=== PATIENT | male | born 1940 | race Caucasian/White ===

== ENCOUNTER 2016-08-14 21:53 | Inpatient (IN) ==
[2016-08-14 23:15] LABS: Basophils # 0.1 K/mcL (0.0-0.2); Basophils % 0.5 %; Eosinophils # 0.2 K/mcL (0.0-0.6); Eosinophils % 1.8 %; Hematocrit 41.3 % (37.5-50.1); Hemoglobin 13.1 g/dL (12.9-16.9); Immature Granulocytes % 0.2 % (0-4); Lymphocytes # 0.4 K/mcL (0.6-4.6); Lymphocytes % 3.9 %; Mean Corpuscular HGB Conc 31.7 g/dL (31.6-35.5); Mean Corpuscular Hemoglobin 28.8 pg (28.0-33.3); Mean Corpuscular Volume 90.8 fL (83.0-100.0); Mean Platelet Volume 9.8 fL (9.4-12.4); Monocytes # 0.5 K/mcL (0.0-1.3); Neutrophils # 9.3 K/mcL (1.6-8.9); Platelet Count 231 K/mcL (140-400); Red Blood Count 4.55 M/mcL (4.19-5.50); Red Cell Distribution Width 13.3 % (11.5-14.5); Segmented Neutrophils % 88.6 %
[2016-08-14 23:25] LABS: Calcium 9.2 mg/dL (8.6-10.8); Potassium 4.6 mEq/L (3.5-4.5)
[2016-08-14] MEDS ORDERED: 0.9 % Sodium Chloride 2,000 ML IVC ONE (23:33)
[2016-08-14] MEDS ORDERED: Ipratropium/Albuterol Neb 3 ML IH ONE (23:34)
--- NOTE | 2016-08-14 23:35 | Emergency Department Note ---
Disposition Clinical Impression: Acute respiratory distress, Lactic acidosis, SIRS (systemic inflammatory response syndrome), Hypoxia, Hypomagnesemia, Acute exacerbation of chronic obstructive airways disease Disposition: Admitted As Inpatient Condition: Good Time of Disposition: 02:34 SOB HPI - General Chief Complaint: ED Shortness of Breath/Dyspnea Stated Complaint: DELGADO Time Seen by Provider: 08/14/16 23:18 Source: patient Mode of arrival: ambulatory Limitations: no limitations Nursing Notes Reviewed: Yes Vital Signs Reviewed: Yes - History of Present Illness 76-year-old male history of COPD 2 L home oxygenation and prostate cancer presents to the ED with difficulty breathing and generalized weakness. Reports over the last 2 days he has been having increased difficulty in breathing, increase cough, increased sputum production. Reports using his albuterol and duonebs at home. He denies any fevers at home or muscle aches. Influenza vaccination this year. Has some associated chest tightness. Denies any history of cardiac ischemic disease. Denies any history of cancer, recent travel, injury , or blood clots. His is at bedside and states he is been gradually more weak, this has been ongoing over the past several months. He normally is sitting on a couch and does not get out much. Tonight he had difficulty getting himself up. History of Prostate Cancer. Pt Subjective Complaint: shortness of breath, cough Onset (ago): day(s) - Related Data Allergies Allergy/AdvReac Type Severity Reaction Status Date / Time No Known Allergies Allergy Verified 08/14/16 22:18 All systems ED: reviewed and negative except as stated. Constitutional: Denies: fever, chills Cardiovascular: Reports: chest pain. Denies: palpitations Respiratory: Reports: cough, dyspnea, wheezes Gastrointestinal: Denies: abdominal pain, nausea, vomiting Musculoskeletal: Denies: back pain Integumentary: Denies: rash Past Medical History - Past Medical History Attestation: Yes The following information was validated with the patient. Source: patient Medical history: Reports: arthritis, cancer, COPD, other Psychiatric history: Reports: anxiety, depression - Social History Smoking Status: Former smoker Smokeless Tobacco Status: No Alcohol use: Reports: none Drug use: Reports: none Physical Exam - General Limitations: no limitations General appearance: alert, in no apparent distress - Head Head exam: atraumatic, normocephalic, normal inspection - Eye Eye exam: Present: normal appearance, PERRL, EOMI - ENT ENT exam: normal exam, normal oropharynx, mucous membranes dry - Neck Neck exam: Present: normal inspection, full ROM, trachea midline - Chest Chest inspection: Present: normal inspection, symmetric chest wall rise - Respiratory Respiratory exam: Present: normal lung sounds bilaterally, respiratory distress , wheezes - Expanded Respiratory Exam Location: wheezes: Left, rales: Left - Cardiovascular Cardiovascular exam: Present: regular rate, normal rhythm, normal heart sounds - Abdominal Exam Abdominal exam: Present: soft, Non-Tender, normal bowel sounds. Absent: tenderness, distention, guarding, rebound, rigidity - Extremities Exam Extremities exam: Present: normal inspection, full ROM, normal capillary refill. Absent: tenderness, pedal edema, calf tenderness - Neurological Exam Neurological exam: Present: alert, oriented X3 - Psychiatric Psychiatric exam: Present: normal affect, normal mood - Skin Skin exam: Present: warm, dry, intact, normal color Course Course Narrative: 76-year-old male with a history of COPD presents the ED for difficulty breathing. This is been ongoing for the past 2 days. Patient has a fever of 102.5 and is tachycardic at 98. SIRS criteria met. Sepsis workup initiated. 2 L ordered for resuscitation. Patient is moving air well and has bilateral wheezing that is worse on the left. Concerning for possible pneumonia as the source. Will check for influenza as well. Patient and family are in agreement with plan. - Reevaluation(s) Reevaluation #1: Chest x-ray did not reveal any acute infiltrate. Influenza is negative. His lactate is elevated 1.6 after one liter. Troponin is negative and Cr is near baseline with mild renal insufficiency. Awaiting urine. Mag and Phos are low and will replete. Will likely admit for generalized weakness, SIRS, resp distress, COPD exac. Time: 01:00 Reevaluation #2: After 2 L lactic acid has risen 2.3. He continues to have increased work of breathing. Will place him on BiPAP. Lungs remain clear bilaterally with mild wheezes but hypoxic 93%. Steroids given. Will treat with broad antibiotics Ceftriaxone and Azithromycin. Blood cultures drawn. Hospitalist paged. Time: 02:30 - Consultations Consultation #1: Spoke with Dr. Hendrix, hospitalist, discussed bed unavailability, may need to consider transfer. Requests ABG and call back. Time: 02:35 Consultation #2: ABG 7.41/38/24. Recalled rigo Cervantes to admit for SIRS, lactic acidosis , resp distress, and generalized weakness. Time: 03:30 Vital Signs Temperature 102.5 F H 08/14/16 22:18 Pulse Rate 98 08/14/16 22:18 Respiratory Rate 20 08/14/16 22:18 Blood Pressure 103/67 08/14/16 22:18 O2 Sat by Pulse Oximetry 96 08/14/16 22:18 Temperature 98.9 F 08/15/16 06:32 Pulse Rate 80 08/15/16 06:32 Respiratory Rate 20 08/15/16 06:32 Blood Pressure 154/96 08/15/16 06:32 O2 Sat by Pulse Oximetry 98 08/15/16 06:32 Oxygen Delivery Oxygen Delivery Nasal Cannula Shortness of Breath/Dyspnea - Medical Records Medical records reviewed: Yes I reviewed the patient's medical records. - Lab Data Lab results reviewed: Yes I reviewed the patient's lab results. Result diagrams: 08/14/16 23:05 08/14/16 23:05 Lab Results 08/14/16 08/14/16 08/15/16 Range/Units 23:05 23:05 00:04 WBC 10.5 (4.3-11.1) K/mcL RBC 4.55 (4.19-5.50) M/mcL Hgb 13.1 (12.9-16.9) g/dL Hct 41.3 (37.5-50.1) % MCV 90.8 (83.0-100.0) fL MCH 28.8 (28.0-33.3) pg MCHC 31.7 (31.6-35.5) g/dL RDW 13.3 (11.5-14.5) % Plt Count 231 (140-400) K/mcL MPV 9.8 (9.4-12.4) fL Immature Gran % 0.2 (0-4) % Seg Neutrophils % 88.6 % Lymphocytes % 3.9 % Monocytes % 5.0 % Eosinophils % 1.8 % Basophils % 0.5 % Neutrophils # 9.3 H (1.6-8.9) K/mcL Lymphocytes # 0.4 L (0.6-4.6) K/mcL Monocytes # 0.5 (0.0-1.3) K/mcL Eosinophils # 0.2 (0.0-0.6) K/mcL Basophils # 0.1 (0.0-0.2) K/mcL ABG pH (7.32-7.45) pH Units ABG pCO2 (35-45) mmHg ABG pO2 (85-104) mmHg ABG HCO3 (21-27) mEQ/L ABG Total CO2 (20-26) mEq/L ABG O2 Saturation (95-98) % ABG Base Excess (-2.0 to 3.0) mEq/L Respiration Rate Blood Gas Modality Inspired O2 % PEEP cm H2O Sodium 139 (136-145) mEq/L Potassium 4.6 H (3.5-4.5) mEq/L Chloride 105 (98-109) mEq/L Carbon Dioxide 25 (19-29) mEq/L BUN 26 (8-26) mg/dL Creatinine 1.43 H (0.72-1.25) mg/dL Est GFR ( Amer) 58 L (> 60) Est GFR (Non-Af Amer) 48 L (> 60) BUN/Creatinine Ratio 18 (6-26) Glucose 123 H (70-99) mg/dL Calculated Osmolality 294 (280-300) Lactic Acid 1.6 (0.5-2.2) mmol/L Calcium 9.2 (8.6-10.8) mg/dL Phosphorus (2.3-4.7) mg/dL Magnesium (1.6-2.6) mg/dL Troponin I (0-0.03) ng/mL Urine Color (Yellow) Urine Clarity (Clear) Urine pH (5.0-8.0) pH Units Ur Specific [place] (1.010-1.025) Urine Protein (Neg-Trace) mg/dL Urine Glucose (UA) (Normal) mg/dL Urine Ketones (Negative) mg/dL Urine Blood (Negative) Urine Nitrite (Negative) Urine Bilirubin (Negative) Urine Urobilinogen (Normal) mg/dL Ur Leukocyte Esterase (Negative) Urine Microscopic RBC (0-3) per hpf Urine Microscopic WBC (0-3) per hpf Ur Squamous Epith Cells (None-Few) per lpf Urine Bacteria (None-Few) per hpf Hyaline Casts (None-Few) per lpf Ur Culture Indicated? (NO) 08/15/16 08/15/16 08/15/16 Range/Units 00:04 00:04 01:30 WBC (4.3-11.1) K/mcL RBC (4.19-5.50) M/mcL Hgb (12.9-16.9) g/dL Hct (37.5-50.1) % MCV (83.0-100.0) fL MCH (28.0-33.3) pg MCHC (31.6-35.5) g/dL RDW (11.5-14.5) % Plt Count (140-400) K/mcL MPV (9.4-12.4) fL Immature Gran % (0-4) % Seg Neutrophils % % Lymphocytes % % Monocytes % % Eosinophils % % Basophils % % Neutrophils # (1.6-8.9) K/mcL Lymphocytes # (0.6-4.6) K/mcL Monocytes # (0.0-1.3) K/mcL Eosinophils # (0.0-0.6) K/mcL Basophils # (0.0-0.2) K/mcL ABG pH (7.32-7.45) pH Units ABG pCO2 (35-45) mmHg ABG pO2 (85-104) mmHg ABG HCO3 (21-27) mEQ/L ABG Total CO2 (20-26) mEq/L ABG O2 Saturation (95-98) % ABG Base Excess (-2.0 to 3.0) mEq/L Respiration Rate Blood Gas Modality Inspired O2 % PEEP cm H2O Sodium (136-145) mEq/L Potassium (3.5-4.5) mEq/L Chloride (98-109) mEq/L Carbon Dioxide (19-29) mEq/L BUN (8-26) mg/dL Creatinine (0.72-1.25) mg/dL Est GFR ( Amer) (> 60) Est GFR (Non-Af Amer) (> 60) BUN/Creatinine Ratio (6-26) Glucose (70-99) mg/dL Calculated Osmolality (280-300) Lactic Acid 2.3 H (0.5-2.2) mmol/L Calcium (8.6-10.8) mg/dL Phosphorus 1.7 L (2.3-4.7) mg/dL Magnesium 1.5 L (1.6-2.6) mg/dL Troponin I 0.01 (0-0.03) ng/mL Urine Color (Yellow) Urine Clarity (Clear) Urine pH (5.0-8.0) pH Units Ur Specific [place] (1.010-1.025) Urine Protein (Neg-Trace) mg/dL Urine Glucose (UA) (Normal) mg/dL Urine Ketones (Negative) mg/dL Urine Blood (Negative) Urine Nitrite (Negative) Urine Bilirubin (Negative) Urine Urobilinogen (Normal) mg/dL Ur Leukocyte Esterase (Negative) Urine Microscopic RBC (0-3) per hpf Urine Microscopic WBC (0-3) per hpf Ur Squamous Epith Cells (None-Few) per lpf Urine Bacteria (None-Few) per hpf Hyaline Casts (None-Few) per lpf Ur Culture Indicated? (NO) 08/15/16 08/15/16 Range/Units 01:35 03:00 WBC (4.3-11.1) K/mcL RBC (4.19-5.50) M/mcL Hgb (12.9-16.9) g/dL Hct (37.5-50.1) % MCV (83.0-100.0) fL MCH (28.0-33.3) pg MCHC (31.6-35.5) g/dL RDW (11.5-14.5) % Plt Count (140-400) K/mcL MPV (9.4-12.4) fL Immature Gran % (0-4) % Seg Neutrophils % % Lymphocytes % % Monocytes % % Eosinophils % % Basophils % % Neutrophils # (1.6-8.9) K/mcL Lymphocytes # (0.6-4.6) K/mcL Monocytes # (0.0-1.3) K/mcL Eosinophils # (0.0-0.6) K/mcL Basophils # (0.0-0.2) K/mcL ABG pH 7.41 (7.32-7.45) pH Units ABG pCO2 38 (35-45) mmHg ABG pO2 83 L (85-104) mmHg ABG HCO3 24.1 (21-27) mEQ/L ABG Total CO2 25.3 (20-26) mEq/L ABG O2 Saturation 96 (95-98) % ABG Base Excess -0.4 (-2.0 to 3.0) mEq/L Respiration Rate 12 Blood Gas Modality bipap Inspired O2 35 % PEEP 6 cm H2O Sodium (136-145) mEq/L Potassium (3.5-4.5) mEq/L Chloride (98-109) mEq/L Carbon Dioxide (19-29) mEq/L BUN (8-26) mg/dL Creatinine (0.72-1.25) mg/dL Est GFR ( Amer) (> 60) Est GFR (Non-Af Amer) (> 60) BUN/Creatinine Ratio (6-26) Glucose (70-99) mg/dL Calculated Osmolality (280-300) Lactic Acid (0.5-2.2) mmol/L Calcium (8.6-10.8) mg/dL Phosphorus (2.3-4.7) mg/dL Magnesium (1.6-2.6) mg/dL Troponin I (0-0.03) ng/mL Urine Color Yellow (Yellow) Urine Clarity Clear (Clear) Urine pH 6.0 (5.0-8.0) pH Units Ur Specific [place] 1.022 (1.010-1.025) Urine Protein Trace (Neg-Trace) mg/dL Urine Glucose (UA) Normal (Normal) mg/dL Urine Ketones Trace H (Negative) mg/dL Urine Blood Negative (Negative) Urine Nitrite Negative (Negative) Urine Bilirubin Small H (Negative) Urine Urobilinogen Normal (Normal) mg/dL Ur Leukocyte Esterase Negative (Negative) Urine Microscopic RBC 3-5 H (0-3) per hpf Urine Microscopic WBC 0-3 (0-3) per hpf Ur Squamous Epith Cells Many H (None-Few) per lpf Urine Bacteria None Seen (None-Few) per hpf Hyaline Casts None Seen (None-Few) per lpf Ur Culture Indicated? NO (NO) - Radiology Data Radiology results reviewed: Yes I reviewed the patient's radiology results. Chest X-Ray 08/14/16 22:43 IMPRESSION: No acute abnormality. D/ / Yogesh Emmanuel MD / Yogesh Emmanuel MD Interpreting Provider: Yogesh Emmanuel MD - EKG Data EKG attestation: Yes I reviewed and interpreted this EKG. EKG results narrative: EKG performed 2300 sinus tachycardia 100 beats per minute or no ST elevations or depressions, T-wave flattening, intervals are within normal limits FL interval 137 QRS 100 QT QTC 299 356. No acute ischemic changes. Attestation Statement - Attestation Attestation: For this encounter, I have reviewed the resident, UNINDENTURED APPRENTICE, or PA documentation, treatment plan, and medical decision making; and I have had face to face time with this patient. 76-year-old male presents with increasing shortness of breath over the past 2-3 days. Patient states he has a history of COPD and this feels similar to his previous COPD exacerbations. Patient reports a fever and a cough that is productive of yellow-green sputum. Patient denies nausea, vomiting, chest pain , abdominal pain, diarrhea. Patient improved mildly with initial nebulized medications. Patient then required BiPAP for continuation of care. Patient improved significantly after steroids, Tylenol, BiPAP. Patient started on antibiotics after return of elevated lactic acid despite chest x-ray that did not show significant infiltrate. Patient comfortable with the plan for admission to the hospital for continuation of care.
[2016-08-15 00:29] LABS: Magnesium 1.5 mg/dL (1.6-2.6); Phosphorous 1.7 mg/dL (2.3-4.7)
[2016-08-15] MEDS ORDERED: Acetaminophen 325 MG TABLET PO ONE (01:25)
[2016-08-15] MEDS ORDERED: predniSONE 20 MG TABLET PO ONE (01:25)
[2016-08-15] MEDS ORDERED: Azithromycin 500 MG in D5% in Water 250 ML IVPB ONE (01:32)
[2016-08-15 01:41] LABS: Bilirubin,Urine Small (Negative); Blood,Urine Negative (Negative); Clarity,Urine Clear (Clear); Color,Urine Yellow (Yellow); Glucose,Urine (UA) Normal (Normal); Ketones,Urine Trace mg/dL (Negative); Leukocyte Esterase,Urine Negative (Negative); Nitrite,Urine Negative (Negative); Protein,Urine Trace mg/dL (Neg-Trace); Specific Gravity,Urine 1.022 (1.010-1.025); Urobilinogen,Urine Normal (Normal)
[2016-08-15 01:43] LABS: Bacteria,Urine None Seen per hpf (None-Few); Hyaline Casts,Urine None Seen per lpf (None-Few); Squamous Epithelial Cell,Urine Many per lpf (None-Few); WBC,Urine 0-3 per hpf (0-3)
[2016-08-15 03:11] LABS: ABG Base Excess -0.4 mEq/L (-2.0 to 3.0); ABG HCO3 24.1 mEQ/L (21-27); ABG Oxygen Saturation 96 % (95-98); ABG PCO2 38 mmHg (35-45); ABG PH 7.41 pH Units (7.32-7.45); ABG PO2 83 mmHg (85-104); ABG TCO2 25.3 mEq/L (20-26)
[2016-08-15 03:12] LABS: Blood Gas FiO2 35 %; Blood Gas PEEP 6 cm H2O; Blood Gas Respiration Rate 12
[2016-08-15] MEDS ORDERED: Magnesium Sulfate 2 GM in D5% in Water 100 ML IVPB ONE (03:28)
[2016-08-15] MEDS ORDERED: Sodium Phosphate 30 MMOL in D5% in Water 100 ML IVPB ONE (03:28)
--- NOTE | 2016-08-15 04:31 | Internal Med History&Physical ---
<Rocky Zaragoza - Last Filed: 08/15/16 05:01> Date of Encounter: 08/15/16 Time of Encounter: 04:27 Assessment and Plan (1) Sepsis Current visit: Yes Status: Acute Likely etiology is pulmonary given presentation, but no obvious consolidation on CXR Will obtain respiratory infection panel; initial influenza nasal swab was negative Patient received one dose of Zithromax and Rocephin, will start on Levaquin monotherapy He has blood and sputum cultures ordered, await sensitivities prior to de- escalation Maintenance fluid hydration with 80 ml/hr NS Qualifiers: Qualified Code(s): A41.9 - Sepsis, unspecified organism (2) Acute and chronic respiratory failure Current visit: Yes Status: Acute Patient normally on 2 L at home and was on BiPAP earlier and currently on 3 L at home He may need to qualify for higher oxygen demands and possible night-time BiPAP Initial ABG was unremarkable but did show hypoxemia Will support with supplemental oxygen, steroids, and breathing treatments Qualifiers: Qualified Code(s): J96.20 - Acute and chronic respiratory failure, unspecified whether with hypoxia or hypercapnia (3) Acute exacerbation of chronic obstructive airways disease Current visit: Yes Status: Acute Plan as above with supplemental oxygen, steroids, breathing treatments, and antibiotics (4) DVT prophylaxis Current visit: Yes Status: Acute Heparin 5000 units BID Internal Medicine - H&P: HPI Chief complaint: Shortness of breath Admitted From: Home Plans for Post Hospital Care: Home History of present illness: Mr. Gregg is a 76 year old male who presents emergency department with shortness of breath. He states that over the past day has been progressively getting worse and he has increased cough with sputum production. He denies any blood in his sputum and described it as brown. He also describes a subjective fever which he did not not take any medications for. He notes that he has been getting weaker over the past several months and requires the assistance of his in order to get around. He has a history of COPD and is on 2 L oxygen and breathing treatments at home. He normally has a poor appetite and only eats 1 meal per day. He denies any recent hospitalizations, history of cancers, clots , or bleeding. He denies any chest pain, nausea, vomiting, diarrhea, but does endorse pain with cough. Patient was on the BiPAP earlier while in the emergency department but could not tolerate it due to irritation. Past Med Surg Social Fam HX - Past Medical History Medical history: arthritis, cancer, COPD, other Psychiatric history: anxiety, depression - Social History Smoking Status: Former smoker Smokeless Tobacco Status: No Alcohol use: none Drug use: none Internal Medicine - H&P: Meds Allergies No Known Allergies Allergy (Verified 08/14/16 22:18) All Systems PM: A 10-system review of systems was performed and is negative for pertinent findings except as documented above in the HPI. - Constitutional Constitutional: fever(s), lethargy, weakness, no chills, no night sweats - EENT Eyes: no change in vision, no discharge, no pain, no photophobia Ears: no ear discharge, no ear pain, no tinnitus Nose, mouth and throat: no dysphagia, no nasal discharge, no neck pain, no sore throat - Cardiovascular Cardiovascular ROS IM: dyspnea, dyspnea on exertion, no chest pain, no diaphoresis, no lightheadedness, no palpitations, no syncope - Respiratory Respiratory: cough, dyspnea, dyspnea on exertion, wheezing, excessive phlegm production, change in phlegm color, pain with cough - Gastrointestinal Gastrointestinal: no abdominal pain, no diarrhea, no hematemesis, no hematochezia, no melena, no nausea, no vomiting - Musculoskeletal Musculoskeletal ROS IM: no numbness, no tingling - Integumentary Integumentary IM: no rash, no unusual bruising - Neurological Neurological ROS: no confusion, no convulsions, no focal weakness, no numbness, no tingling, no tremor(s) - Hematologic/Lymphatic Hematologic/Lymphatic: no easy bruising - Constitutional Vitals: Temp Pulse Resp BP Pulse Ox 99.0 F 95 20 150/80 98 08/15/16 03:00 08/15/16 04:00 08/15/16 04:00 08/15/16 04:00 08/15/16 04:00 General appearance: Present: cooperative, A&O X 3, pleasant, no acute distress, answers questions appropriately - Head Head exam: Present: atraumatic, normocephalic - Eye Eye exam: Present: PERRL, conjuntiva pink, sclera anicteric - Neck Neck exam general surgery: Present: supple, trachea midline. Absent: lymphadenopathy - Respiratory Respiratory exam: Present: wheezes. Absent: accessory muscle use, rales, rhonchi - Cardiovascular Cardiovascular exam: Present: RRR, +S1, +S2. Absent: diastolic murmur, gallop, rubs, systolic murmur - GI/Abdominal GI/Abdominal exam: Present: normal bowel sounds, soft, no peritoneal signs. Absent: distended, tenderness - Extremities Exam Extremities exam: Present: warm, radial pulses palpable and symetrical. Absent : calf tenderness, cyanotic, pedal edema - Neurological Exam Neurological exam: Present: alert, oriented X3, no focal deficits. Absent: facial droop, speech deficit - Skin Skin exam: Present: dry, intact Internal Med - H&P Results - Labs CBC & Chem 7: 08/14/16 23:05 08/14/16 23:05 Labs: Short CBC 08/14/16 Range/Units 23:05 WBC 10.5 (4.3-11.1) K/mcL Hgb 13.1 (12.9-16.9) g/dL Hct 41.3 (37.5-50.1) % Plt Count 231 (140-400) K/mcL Neutrophils # 9.3 H (1.6-8.9) K/mcL BMP 08/14/16 23:05 Sodium 139 Potassium 4.6 H Chloride 105 Carbon Dioxide 25 BUN 26 Creatinine 1.43 H Glucose 123 H Calcium 9.2 Cardiac Enzymes 08/15/16 Range/Units 00:04 Troponin I 0.01 (0-0.03) ng/mL Urine 08/15/16 Range/Units 01:35 Urine Color Yellow (Yellow) Urine Clarity Clear (Clear) Urine pH 6.0 (5.0-8.0) pH Units Ur Specific [place] 1.022 (1.010-1.025) Urine Protein Trace (Neg-Trace) mg/dL Urine Glucose (UA) Normal (Normal) mg/dL - ABG Interpretation ABG results: 08/15/16 03:00 ABG pH 7.41 ABG pCO2 38 ABG pO2 83 L ABG HCO3 24.1 ABG Total CO2 25.3 ABG O2 Saturation 96 ABG Base Excess -0.4 - Impressions ITS Impressions Chest X-Ray 08/14/16 22:43 IMPRESSION: No acute abnormality. D/ / Yogesh Emmanuel MD / Yogesh Emmanuel MD Interpreting Provider: Yogesh Emmanuel MD <Radha Snow Wes - Last Filed: 08/15/16 08:04> Date of Encounter: 08/15/16 Internal Medicine - H&P: HPI History of present illness: Mr. Gregg is a 76 year old male All Systems PM: A 10-system review of systems was performed and is negative for pertinent findings except as documented above in the HPI. - Constitutional Vitals: Temp Pulse Resp BP Pulse Ox 98.9 F 81 20 154/96 98 08/15/16 06:32 08/15/16 07:44 08/15/16 07:57 08/15/16 06:32 08/15/16 07:57 Internal Med - H&P Results - Labs CBC & Chem 7: 08/14/16 23:05 08/14/16 23:05 - Attending Attestation I performed a history and physical examination of the patient and discussed his management with the Resident/Maintenance Controller (Dr Zaragoza). I reviewed the residents note and agree with the documented findings and plan of care, with additions as below. 76-year-old male with a prior history of COPD and chronic respiratory failure presents with shortness of breath, cough with yellow expectoration. He was febrile in the emergency department with temperature 102.5 F. Influenza screen is negative. Chest x-ray shows no acute abnormality. Urinalysis is negative. Pt was started on BiPAP therapy in emergency department, but the pt is not able to tolerate it well. O/E: Occasional wheeze present. A/P: - Acute exacerbation of COPD/acute tracheobronchitis: Treatment bronchodilators, steroids, levofloxacin. Sepsis likely secondary to infective exacerbation of COPD/acute bronchitis: Will treat with levofloxacin. Acute on chronic resp failure: pt is not tolerating BiPAP well.
[2016-08-15] MEDS ORDERED: Ondansetron ODT 4 MG TAB.RAPDIS SL PRN (04:50)
[2016-08-15] MEDS ORDERED: Acetaminophen 325 MG TABLET PO PRN (04:50)
[2016-08-15] MEDS ORDERED: Naloxone 0.4 MG/ML INJ IVP PRN (04:50)
[2016-08-15] MEDS ORDERED: *HR* OxyCODONE/APAP 5/325 TABLET PO PRN ×2 (04:56→18:19)
[2016-08-15] MEDS ORDERED: Albuterol 2.5 MG/3 ML NEBULIZER IH PRN (04:56)
[2016-08-15] MEDS ORDERED: 0.9 % Sodium Chloride 1,000 ML IVC SCH (05:00)
[2016-08-15] MEDS: *HR* Heparin 5,000 UNIT/ML VIAL SQ SCH ×2 (06:47→18:55)
[2016-08-15] MEDS: MethylPREDNISolone 40 MG/ML VIAL IVP SCH ×2 (07:40→15:28)
[2016-08-15] MEDS: Budesonide/Formoterol 160/4.5 MDI IH SCH ×2 (07:52→20:22)
[2016-08-15] MEDS: Ipratropium/Albuterol Neb 3 ML IH SCH ×4 (07:52→20:22)
[2016-08-15 10:14] LABS: Adenovirus Not Detected (Not Detect); Bordetella Pertussis Not Detected (Not Detect); Chlamydophila pneumoniae Not Detected (Not Detect); Coronavirus 229E Not Detected (Not Detect); Coronavirus HKU1 Not Detected (Not Detect); Coronavirus NL63 Not Detected (Not Detect); Coronavirus OC43 Not Detected (Not Detect); Human Metapneumovirus Not Detected (Not Detect); Human Rhinovirus/Enterovirus Not Detected (Not Detect); Influenza A Subtype 2009 H1 Not Detected (Not Detect); Influenza A Untypeable Not Detected (Not Detect); Influenza B Not Detected (Not Detect); Mycoplasma pneumoniae Not Detected (Not Detect); Parainfluenza Virus 1 Not Detected (Not Detect); Parainfluenza Virus 2 Not Detected (Not Detect); Parainfluenza Virus 3 Not Detected (Not Detect); Parainfluenza Virus 4 Not Detected (Not Detect); Respiratory Syncytial Virus Not Detected (Not Detect)
--- NOTE | 2016-08-15 11:46 | Internal Med Progress Note ---
Date of Encounter: 08/15/16 Time of Encounter: 11:44 - Assessment and plan (1) Sepsis Current Visit: Yes Status: Acute Assessment and plan: Patient with fever, tachycardia on admission he has pulmonary symptoms Admitting CXR unremarkable Resp panel negative No leukocytosis Influenza negative BP WNL, no lactic acidosis Follow blood, urine and sputum cultures Currently on Levofloxacin IV, continue same High risk of respiratory compromise, progression to septic shock Patient is full code Qualifiers: Sepsis type: sepsis due to unspecified organism Qualified Code(s): A41.9 - Sepsis, unspecified organism (2) Acute and chronic respiratory failure Current Visit: Yes Status: Acute Assessment and plan: Improved Continue O2 by nasal cannula Qualifiers: Respiratory failure complication: unspecified whether with hypoxia or hypercapnia Qualified Code(s): J96.20 - Acute and chronic respiratory failure , unspecified whether with hypoxia or hypercapnia (3) Hypophosphatemia Current Visit: Yes Status: Acute Assessment and plan: Replaced, monitor (4) Acute exacerbation of chronic obstructive airways disease Current Visit: Yes Status: Acute Assessment and plan: Continue duonebs, solumedrol, levofloxacin (5) Hypomagnesemia Current Visit: Yes Status: Acute Assessment and plan: Replaced Rpt a,m Continue po supplements (6) CKD (chronic kidney disease) Current Visit: Yes Status: Chronic Assessment and plan: Cr stable at baseline Qualifiers: Chronic kidney disease stage: stage 2 (mild) Qualified Code(s): N18.2 - Chronic kidney disease, stage 2 (mild) (7) Hypertension Current Visit: Yes Status: Chronic Assessment and plan: Not on meds at home Resume meds for BP >150/90 Norvasc 2.5mg po daily , increase prn Qualifiers: Hypertension type: essential hypertension Qualified Code(s): I10 - Essential (primary) hypertension - Subjective Interval history: Initial encounter EMR reviewed 76 Y/O M with PMH of COPD, OA, Depression Admitted for management of Acute on Chronic hypoxic respiratory failure secondary to COPDE, Sepsis Seen at bedside, denies new complains Reports minimal improvement has refused BiPAP since admission, SO2 acceptable on nasal cannula - Constitutional Vitals: Temp Pulse Resp BP Pulse Ox 98.8 F 80 18 148/86 99 08/15/16 11:15 08/15/16 11:15 08/15/16 11:15 08/15/16 11:15 08/15/16 11:15 General appearance: Present: cooperative, A&O X 3, pleasant, no acute distress, answers questions appropriately - Head Head exam: Present: atraumatic - Eye Eye exam: Present: PERRL, conjuntiva pink, sclera anicteric - ENT ENT exam: Present: mucous membranes moist - Neck Neck exam general surgery: Present: normal inspection - Respiratory Additional comments: Not tachypneic Receiving nebulization at time of review O2Sat 100 Chest movement equal Lungs are clear to auscultation bilaterally - Cardiovascular Cardiovascular exam: Present: RRR, +S1, +S2. Absent: diastolic murmur, gallop, rubs, systolic murmur - GI/Abdominal GI/Abdominal exam: Present: normal bowel sounds, soft, no peritoneal signs. Absent: distended, tenderness - Extremities Exam Extremities exam: Present: warm, radial pulses palpable and symetrical. Absent : calf tenderness, cyanotic, pedal edema - Neurological Exam Neurological exam: Present: alert, CN II-XII intact, oriented X3, no focal deficits. Absent: pronater drift, facial droop, speech deficit - Skin Skin exam: Present: dry, intact Internal Medicine: Result - Labs CBC & Chem 7: 08/14/16 23:05 08/14/16 23:05 - ABG Interpretation ABG results: ABG ABG pH 7.41 pH Units (7.32-7.45) 08/15/16 03:00 ABG pCO2 38 mmHg (35-45) 08/15/16 03:00 ABG pO2 83 mmHg (85-104) L 08/15/16 03:00 ABG O2 Saturation 96 % (95-98) 08/15/16 03:00 Consult Discharge Plan - Plan Referrals: En Pereira DO [Primary Care Provider] -
[2016-08-15] MEDS ORDERED: Chloraseptic Spray 177 ML BOTTLE MM PRN (16:44)
[2016-08-15] MEDS: amLODIPine 5 MG TABLET PO SCH (18:55)
[2016-08-16] MEDS: Ipratropium/Albuterol Neb 3 ML IH SCH ×6 (00:05→21:08)
[2016-08-16] MEDS: MethylPREDNISolone 40 MG/ML VIAL IVP SCH ×2 (00:20→08:22)
[2016-08-16] MEDS ORDERED: Levofloxacin 500 MG/100 ML 500 MG/100 ML BAG IVPB SCH (04:00)
[2016-08-16] MEDS: *HR* Heparin 5,000 UNIT/ML VIAL SQ SCH ×2 (06:13→18:32)
[2016-08-16] MEDS: LEVOFLOXACIN 750 MG/150 ML IVPB SCH (06:13)
[2016-08-16 06:40] LABS: Basophils % 0.1 %; Hematocrit 36.5 % (37.5-50.1); Immature Granulocytes % 0.4 % (0-4); Lymphocytes # 0.3 K/mcL (0.6-4.6); Mean Corpuscular HGB Conc 30.7 g/dL (31.6-35.5); Mean Corpuscular Hemoglobin 27.7 pg (28.0-33.3); Mean Corpuscular Volume 90.3 fL (83.0-100.0); Mean Platelet Volume 9.7 fL (9.4-12.4); Monocytes # 0.2 K/mcL (0.0-1.3); Monocytes % 2.7 %; Neutrophils # 8.5 K/mcL (1.6-8.9); Platelet Count 206 K/mcL (140-400); Red Blood Count 4.04 M/mcL (4.19-5.50); Red Cell Distribution Width 13.3 % (11.5-14.5); Segmented Neutrophils % 93.8 %
[2016-08-16 06:41] LABS: Hemoglobin 11.2 g/dL (12.9-16.9)
[2016-08-16 06:57] LABS: Magnesium 1.8 mg/dL (1.6-2.6)
[2016-08-16 07:02] LABS: Phosphorous 2.9 mg/dL (2.3-4.7)
[2016-08-16 07:03] LABS: BUN/Creatinine Ratio 18 (6-26); Blood Urea Nitrogen 20 mg/dL (8-26); Calcium 8.2 mg/dL (8.6-10.8); Carbon Dioxide 21 mEq/L (19-29); Chloride 112 mEq/L (98-109); Glucose 144 mg/dL (70-99); Osmolality,Calculated 297 (280-300); Potassium 4.4 mEq/L (3.5-4.5); Sodium 141 mEq/L (136-145); eGFR For African Americans > 60 (> 60); eGFR For Non-African Americans > 60 (> 60)
[2016-08-16] MEDS: Budesonide/Formoterol 160/4.5 MDI IH SCH ×2 (07:40→21:08)
[2016-08-16] MEDS: amLODIPine 5 MG TABLET PO SCH (08:22)
[2016-08-16] MEDS: Magnesium Oxide 400 MG TABLET PO SCH (08:22)
[2016-08-16] MEDS ORDERED: NON-FORMULARY MEDICATION 1 EACH EACH (Omeprazole [Omeprazole] 20 MG) PO SCH (09:00)
--- NOTE | 2016-08-16 10:55 | Internal Med Progress Note ---
Date of Encounter: 08/16/16 Time of Encounter: 10:53 - Assessment and plan (1) Sepsis Current Visit: Yes Status: Acute Assessment and plan: Patient with fever, tachycardia on admission he has pulmonary symptoms Admitting CXR unremarkable Resp panel negative No leukocytosis Influenza negative BP WNL, no lactic acidosis Blood and sputum cultures preliminary negative Currently on Levofloxacin IV, continue same Patient is full code Qualifiers: Sepsis type: sepsis due to unspecified organism Qualified Code(s): A41.9 - Sepsis, unspecified organism (2) Acute and chronic respiratory failure Current Visit: Yes Status: Acute Assessment and plan: Improved Continue O2 by nasal cannula Qualifiers: Respiratory failure complication: unspecified whether with hypoxia or hypercapnia Qualified Code(s): J96.20 - Acute and chronic respiratory failure , unspecified whether with hypoxia or hypercapnia (3) Hypophosphatemia Current Visit: Yes Status: Acute Assessment and plan: Replaced, monitor (4) Acute exacerbation of chronic obstructive airways disease Current Visit: Yes Status: Acute Assessment and plan: Continue duonebs, solumedrol, levofloxacin (5) Hypomagnesemia Current Visit: Yes Status: Acute Assessment and plan: Replaced Rpt a,m Continue po supplements (6) CKD (chronic kidney disease) Current Visit: Yes Status: Chronic Assessment and plan: Cr stable at baseline Qualifiers: Chronic kidney disease stage: stage 2 (mild) Qualified Code(s): N18.2 - Chronic kidney disease, stage 2 (mild) (7) Hypertension Current Visit: Yes Status: Chronic Assessment and plan: Not on meds at home Norvasc increased to 10mg po daily Qualifiers: Hypertension type: essential hypertension Qualified Code(s): I10 - Essential (primary) hypertension - Subjective Interval history: 76 Y/O M with PMH of COPD, OA, Depression Admitted for management of Acute on Chronic hypoxic respiratory failure secondary to COPDE, Sepsis with probable Respiratory tract source Seen at bedside, denies new complains Patient thinks he has made significant improvement. He had one more episode of fever yesterday at 1622. MAXIMUM TEMPERATURE 101.9. He has been afebrile since then. Influenza negative, blood culture still negative, sputum culture negative. - Constitutional Vitals: Temp Pulse Resp BP Pulse Ox 97.9 F 107 20 157/91 97 08/16/16 07:34 08/16/16 08:25 08/16/16 07:34 08/16/16 07:34 08/16/16 07:34 General appearance: Present: cooperative, A&O X 3, pleasant, no acute distress, answers questions appropriately - Head Head exam: Present: atraumatic, normocephalic - Eye Eye exam: Present: PERRL, conjuntiva pink, sclera anicteric Pupils: Present: PERRL - Neck Neck exam general surgery: Present: supple, trachea midline. Absent: lymphadenopathy - Respiratory Respiratory exam: Present: decreased breath sounds, wheezes. Absent: rales, rhonchi, stridor - Cardiovascular Cardiovascular exam: Present: RRR, +S1, +S2. Absent: diastolic murmur, gallop, rubs, systolic murmur - GI/Abdominal GI/Abdominal exam: Present: normal bowel sounds, soft, no peritoneal signs. Absent: distended, tenderness - Extremities Exam Extremities exam: Present: warm, radial pulses palpable and symetrical. Absent : calf tenderness, cyanotic, pedal edema - Neurological Exam Neurological exam: Present: CN II-XII intact, oriented X3, no focal deficits. Absent: pronater drift, facial droop, speech deficit - Skin Skin exam: Present: dry, intact Internal Medicine: Result - Labs CBC & Chem 7: 08/16/16 05:19 08/16/16 05:19 Labs: Short CBC 08/16/16 Range/Units 05:19 WBC 9.0 (4.3-11.1) K/mcL Hgb 11.2 L D (12.9-16.9) g/dL Hct 36.5 L (37.5-50.1) % Plt Count 206 (140-400) K/mcL Neutrophils # 8.5 (1.6-8.9) K/mcL BMP 08/16/16 05:19 Sodium 141 Potassium 4.4 Chloride 112 H Carbon Dioxide 21 BUN 20 Creatinine 1.09 Glucose 144 H Calcium 8.2 L - ABG Interpretation ABG results: ABG ABG pH 7.41 pH Units (7.32-7.45) 08/15/16 03:00 ABG pCO2 38 mmHg (35-45) 08/15/16 03:00 ABG pO2 83 mmHg (85-104) L 08/15/16 03:00 ABG O2 Saturation 96 % (95-98) 08/15/16 03:00 Consult Discharge Plan - Plan Referrals: En Pereira DO [Primary Care Provider] -
[2016-08-16] MEDS ORDERED: amLODIPine 5 MG TABLET PO ONE (15:51)
[2016-08-16] MEDS ORDERED: *HR* LORazepam 2 MG/ML VIAL IVP ONE ×2 (16:10→21:21)
[2016-08-16] MEDS ORDERED: Furosemide 40 MG/4 ML VIAL IVP ONE ×2 (17:13→17:38)
[2016-08-16] MEDS ORDERED: *HR* Metoprolol 5 MG/5 ML VIAL IVP ONE (17:16)
[2016-08-16] MEDS ORDERED: niCARdipine 20 MG/200 ML MLS IVC ONE (18:03)
--- NOTE | 2016-08-16 18:12 | Event Note ---
Date of Encounter: 08/16/16 Time of Encounter: 18:05 76 Y/O M being managed for presumed sepsis , COPDE Attention drawn to patient with uncontrolled Blood Pressure He had received total 7.5mg of Amlodipine prior to eval He was being fed by his when symptoms started He is seen at bedside with family Alert, awake, able to communicate, responds to name call Looks anxious, tachycardic, BP 180-220/100-120. Speaks sentences withe breaks Gurgling RR 18-25 Good air entry bilaterally but with lots of secretions in the upper airway Stat CXR ordered, IV Lasix given and BP monitored CXR shows no acute processes 40mg IV lasix given X2, Patient saturating 95% on 4L nasal canula Patient was suctioned RT paged for ABG and to start BiPAP after suctioning ABG with acute respiratory acidosis, PH 7.17, PCO2 76, PO2 80 Assessment/Plan 1. Aspiration -Food particles suctioned from patients oral cavity and pharynx. NPO except meds. Speech and swallow eval . 2. HTN Urgency: CXR is clear, no pulmnary edema. patient already received lasix. Start NIcardipine drip, target SBP <130, DBP <90 Place Navarrete catheter, patient not making urine , he may be retaining urine 3. Acute hypercapneic and hypoxic respiratory failure: Patient's airway clear of secretions, he is awake and alert now. Place on BiPAP Rpt ABG in one to two hours. Transfer patient to ICU. Pulmonary consult for a.m. Obtain ECHO. Place Navarrete catheter, monitor Chem, strict intake and output CXR is clear Continue Prednisone, duonebs and Levofloxacin 4. Possible urinary retention-Place Navarrete 5. Presumed sepsis: CXR is clear X2. Possibly he had viral syndrome as cultures are negative so far Patient is very high risk of respiratory compromise and mechanical intubation, cardiac arrest and worsening morbidity He is FULL CODE
[2016-08-16 18:14] LABS: ABG Base Excess -2.5 mEq/L (-2.0 to 3.0); ABG HCO3 27.7 mEQ/L (21-27); ABG Oxygen Saturation 92 % (95-98); ABG PO2 80 mmHg (85-104)
[2016-08-16 18:15] LABS: Blood Gas FiO2 36 %
[2016-08-16 18:16] LABS: ABG PCO2 76 mmHg (35-45); ABG PH 7.17 pH Units (7.32-7.45)
[2016-08-16] MEDS: niCARdipine 40 MG/200 ML MLS IVC SCH ×2 (18:30→23:18)
[2016-08-16] MEDS: Albuterol 2.5 MG/3 ML NEBULIZER IH SCH (20:00)
[2016-08-16 21:56] LABS: ABG Base Excess 0.1 mEq/L (-2.0 to 3.0); ABG HCO3 28.5 mEQ/L (21-27); ABG Oxygen Saturation 85 % (95-98); ABG PCO2 65 mmHg (35-45); ABG PH 7.25 pH Units (7.32-7.45); ABG PO2 59 mmHg (85-104); ABG TCO2 30.5 mEq/L (20-26); Blood Gas FiO2 28 %
[2016-08-17] MEDS ORDERED: *HR* LORazepam 2 MG/ML VIAL IVP ONE ×2 (01:02→01:08)
[2016-08-17] MEDS: Albuterol 2.5 MG/3 ML NEBULIZER IH SCH ×6 (01:05→20:20)
[2016-08-17] MEDS: Ipratropium/Albuterol Neb 3 ML IH SCH ×6 (01:05→20:20)
[2016-08-17 02:50] LABS: ABG Base Excess 0.1 mEq/L (-2.0 to 3.0); ABG HCO3 26.8 mEQ/L (21-27); ABG Oxygen Saturation 87 % (95-98); ABG PCO2 52 mmHg (35-45); ABG PH 7.32 pH Units (7.32-7.45); ABG PO2 57 mmHg (85-104); ABG TCO2 28.4 mEq/L (20-26)
[2016-08-17 02:52] LABS: Blood Gas FiO2 30 %
[2016-08-17] MEDS: niCARdipine 40 MG/200 ML MLS IVC SCH ×4 (03:25→22:53)
[2016-08-17 04:13] LABS: Basophils % 0.1 %; Hemoglobin 11.1 g/dL (12.9-16.9); Immature Granulocytes % 0.4 % (0-4); Lymphocytes # 0.8 K/mcL (0.6-4.6); Lymphocytes % 5.7 %; Mean Corpuscular HGB Conc 30.8 g/dL (31.6-35.5); Mean Corpuscular Hemoglobin 27.9 pg (28.0-33.3); Mean Corpuscular Volume 90.5 fL (83.0-100.0); Mean Platelet Volume 9.6 fL (9.4-12.4); Monocytes # 1.3 K/mcL (0.0-1.3); Monocytes % 9.1 %; Neutrophils # 11.7 K/mcL (1.6-8.9); Platelet Count 288 K/mcL (140-400); Red Blood Count 3.98 M/mcL (4.19-5.50); Red Cell Distribution Width 13.5 % (11.5-14.5); Segmented Neutrophils % 84.7 %
[2016-08-17 04:27] LABS: Calcium 8.2 mg/dL (8.6-10.8)
[2016-08-17] MEDS: *HR* Heparin 5,000 UNIT/ML VIAL SQ SCH ×2 (05:30→17:00)
--- NOTE | 2016-08-17 07:02 | Electrocardiograph Report ---
[place] [id number] Test Date: 2016-08-14 Pat Name: Angus Gregg Department: 104 Room: [facility] Gender: M [employer]: : [id number] Requested By: Dwain Rehman Order Number: [id number] Reading MD: Eliceo Castro MD Measurements Intervals [place] Rate: 100 P: 46 SC: 137 QRS: 65 QRSD: 100 T: 82 QT: 299 QTc: 356 Interpretive Statements SINUS TACHYCARDIA Electronically Signed On 08-17-2016 7:00:58 EST by Eliceo Castro MD
[2016-08-17] MEDS: Magnesium Oxide 400 MG TABLET PO SCH (08:09)
[2016-08-17] MEDS: amLODIPine 5 MG TABLET PO SCH (08:10)
[2016-08-17] MEDS ORDERED: methylPREDNISolone 125 MG/2 ML VIAL IVP ONE (08:10)
[2016-08-17] MEDS: Budesonide/Formoterol 160/4.5 MDI IH SCH ×2 (08:13→20:20)
[2016-08-17] MEDS ORDERED: predniSONE 20 MG TABLET PO SCH (09:00)
[2016-08-17] MEDS ORDERED: Propofol 500 MG/50 ML INFUS..BTL ONE (09:34)
[2016-08-17] MEDS ORDERED: Lacri-Lube 3.5 GM TUBE BOTH EYES PRN (09:46)
[2016-08-17] MEDS: FentaNYL (PF) 1,000 MCG in 0.9 % Sodium Chloride 80 ML IVC SCH (10:04)
[2016-08-17 11:02] LABS: ABG HCO3 25.9 mEQ/L (21-27); ABG Oxygen Saturation 99 % (95-98); ABG PCO2 59 mmHg (35-45); ABG PH 7.25 pH Units (7.32-7.45); ABG PO2 170 mmHg (85-104); ABG TCO2 27.7 mEq/L (20-26)
--- NOTE | 2016-08-17 11:04 | Pulmonology Consult Note ---
<En Diane Kimani - Last Filed: 08/17/16 13:42> Date of Encounter: 08/17/16 Time of Encounter: 08:00 Assessment and Plan (1) Acute and chronic respiratory failure Current Visit: Yes Status: Acute Mr. Gregg has known history of COPD with baseline 2-3 L oxygen at home. Presented with COPD exacerbation and acute respiratory failure. Original ABG demonstrated pH 7.17, PCO2 76, PO2 80, bicarbonate 27.7. He required BiPAP. Initially started on Levaquin every 48 hours. By mouth prednisone. 08/17/2016 Examination today demonstrated poor bronchial vesicular breath sounds with diffuse expiratory wheeze. Tachypnea with labored breaths forced inspiratory expiratory ventilation with secondary muscle use. Post intubation ABG demonstrated a pH of 7.25 with a PCO2 of 59 PaO2 of 170 and a bicarbonate of 25.9. Plan: - Continue ICU care - Continue mechanical ventilation with propofol and fentanyl sedation. - Daily chest x-rays and ABG to evaluate ET tube placement and oxygenation. - Continue IV Solu-Medrol 40 mg every 6 hours - Scheduled DuoNeb treatments. - Continue Levaquin 750 every 48 hours Qualifiers: Respiratory failure complication: unspecified whether with hypoxia or hypercapnia Qualified Code(s): J96.20 - Acute and chronic respiratory failure , unspecified whether with hypoxia or hypercapnia (2) Acute exacerbation of chronic obstructive airways disease Current Visit: Yes Status: Acute Known history of COPD with home oxygen 2-3 L. Home respiratory inhalers included Spiriva 18 g inhaled daily, Flovent 2 puffs IH twice a day. Admitted with acute on chronic respiratory failure likely COPD exacerbation cannot rule out other causes. Plan: - As described above. (3) Acute on chronic kidney failure Current Visit: Yes Status: Acute Review of previous creatinine levels and GFR is demonstrate baseline creatinine around 1.09, GFR on admission was greater than 60. Current GFR 37, current creatinine is 1.77. Likely secondary to tachypnea and hypoxic respiratory failure. Ins and outs demonstrate negative fluid balance. Plan: - Patient is currently intubated. - Normal saline at 100 mL's per hour - Monitor renal function with an labs - Avoid nephrotoxic medications and renally dose antibiotics. (4) Hyperkalemia, diminished renal excretion Current Visit: Yes Status: Acute Hyperkalemia secondary to acute kidney injury. Potassium 5.0 today. Plan: - Continue normal saline at 100 mL's per hour - Monitor renal function with a.m. labs. (5) Hypertension Current Visit: Yes Status: Chronic Patient had elevated blood pressures prior to transfer to the ICU. Blood pressure currently controlled, oral antihypertensives were held. Current blood pressure is 91/55 while patient is intubated on propofol. Plan: - Hold antihypertensives Qualifiers: Hypertension type: essential hypertension Qualified Code(s): I10 - Essential (primary) hypertension (6) DVT prophylaxis Current Visit: Yes Status: Acute Heparin 5000 units subcutaneous twice a day History of Present Illness Consult date: 08/17/16 Requesting physician: Derrick Eisenberg Reason for consult: COPD Chief complaint: acute respiratory failure History of present illness: Mr. Gregg known history of COPD with baseline 2-3 L of oxygen at home and required BiPAP on arrival 08/15/2016. He was admitted meeting sepsis criteria with acute respiratory failure with concerns for pulmonary source. He was started on Levaquin monotherapy with blood and sputum cultures ordered. He is a former smoker. His respiratory decompensated further requiring BiPAP and was subsequently transferred to the ICU. ABG demonstrated pH 7.17, PCO2 76, PO2 80 , bicarbonate 27.7. He was also found to be in hypertensive urgency and treated effectively. Upon evaluation in the ICU the patient was on BiPAP and demonstrated acute respiratory distress with respiratory rate around 40, oxygen saturations in the upper 80s, altered mental status, secondary muscle use and straining for an sensory expiratory efforts. He was provided 125 mg IV Solu- Medrol and DuoNeb treatment with little to no response. He demonstrated increased lethargy and signs of decreased respiratory work. He was subsequently intubated this morning. Past Med Surg Social Fam HX - Past Medical History Medical history: arthritis, cancer, COPD, hypertension, other Psychiatric history: anxiety, depression - Past Surgical History Surgical History: cancer surgery - Social History Smoking Status: Former smoker Smokeless Tobacco Status: No Alcohol use: none Drug use: none Medications and Allergies Citalopram Hydrobromide [Celexa] 40 mg PO DAILY 08/15/16 [History] Donepezil HCl [Aricept] 5 mg PO HS 08/15/16 [History] Fluticasone Propionate [Flovent Hfa] 2 puff IH BID 08/15/16 [History] Naproxen [Naprosyn] 500 mg PO BID 08/15/16 [History] Omeprazole 20 mg PO DAILY 08/15/16 [History] Oxycodone HCl/Acetaminophen [Percocet 5-325 mg Tablet] 1 tab PO 5XD PRN [History] Tiotropium [Spiriva] 18 mcg IH DAILY 08/15/16 [History] Allergies No Known Allergies Allergy (Verified 08/14/16 22:18) ROS unobtainable: due to endotracheal tube, due to mental status All Systems: A 10-system review of systems was performed and is negative for pertinent findings except as documented above in the HPI. Physical Examination Vital Signs: Vital Signs, Last 4 Hours Temp Pulse Resp BP Pulse Ox 08/17/16 10:42 13 97 08/17/16 10:00 98 12 100/55 100 08/17/16 09:00 92 33 137/69 98 08/17/16 08:13 35 135/76 92 L 08/17/16 08:00 99 35 135/76 90 L 08/17/16 07:16 99.1 F 08/17/16 07:15 76 General description: 76-year-old male with altered mental status and acute respiratory distress. HEENT: Normocephalic atraumatic, pupils equal reactive, nasal cavity patent and open. oral mucosa is dry, edentulous, endotracheal tube in place. Neck is supple, trachea midline. secondary muscles with respiratory effort. Thoracic cavity: Chest is symmetric bilateral groin was treated for, labored breathing, tachypnea, secondary muscle use, poor thoracic expansion. Respiratory: Diffuse diminished bronchovesicular breath sounds with diffuse expiratory wheeze, rhonchi appreciated in the bilateral lung bases Cardiac: Tachycardic. Bilateral radial pulses were 2+ Abdomen: Distended, nontender to palpation, abdominal wall movement correlating with inspiratory efforts. Extremities are symmetric bilateral, skin is dry with poor skin turgor. Ventilator Settings Ventilator Settings: Ventilator Settings, Last 8 Hours Ventilator Mode VC+ Ventilator Mode A/C Ventilator Tidal Volume 450 Setting Ventilator Tidal Volume 400 Setting Ventilator Respiratory Rate 12 Setting Ventilator Respiratory Rate 12 Setting Actual Respiratory Rate 13 Actual Respiratory Rate 12 Positive End Expiratory 5 Pressure Positive End Expiratory 5 Pressure Peak Inspiratory Airway 22 Pressure Results - Laboratory Findings CBC and BMP: 08/17/16 03:55 08/17/16 03:55 ABG ABG pH 7.32 pH Units (7.32-7.45) 08/17/16 02:38 ABG pCO2 52 mmHg (35-45) H 08/17/16 02:38 ABG pO2 57 mmHg (85-104) L 08/17/16 02:38 ABG O2 Saturation 87 % (95-98) L 08/17/16 02:38 Abnormal lab findings: Abnormal lab results WBC 13.8 K/mcL (4.3-11.1) H D 08/17/16 03:55 RBC 3.98 M/mcL (4.19-5.50) L 08/17/16 03:55 Hgb 11.1 g/dL (12.9-16.9) L 08/17/16 03:55 Hct 36.0 % (37.5-50.1) L 08/17/16 03:55 MCH 27.9 pg (28.0-33.3) L 08/17/16 03:55 MCHC 30.8 g/dL (31.6-35.5) L 08/17/16 03:55 Neutrophils # 11.7 K/mcL (1.6-8.9) H 08/17/16 03:55 ABG pCO2 52 mmHg (35-45) H 08/17/16 02:38 ABG pO2 57 mmHg (85-104) L 08/17/16 02:38 ABG Total CO2 28.4 mEq/L (20-26) H 08/17/16 02:38 ABG O2 Saturation 87 % (95-98) L 08/17/16 02:38 Potassium 5.0 mEq/L (3.5-4.5) H 08/17/16 03:55 BUN 42 mg/dL (8-26) H D 08/17/16 03:55 Creatinine 1.77 mg/dL (0.72-1.25) H D 08/17/16 03:55 Est GFR ( Amer) 45 (> 60) L 08/17/16 03:55 Est GFR (Non-Af Amer) 37 (> 60) L 08/17/16 03:55 Glucose 107 mg/dL (70-99) H 08/17/16 03:55 POC Glucose 112 (58-89) H 08/16/16 19:27 Calcium 8.2 mg/dL (8.6-10.8) L 08/17/16 03:55 Urine Ketones Trace mg/dL (Negative) H 08/15/16 01:35 Urine Bilirubin Small (Negative) H 08/15/16 01:35 Urine Microscopic RBC 3-5 per hpf (0-3) H 08/15/16 01:35 Ur Squamous Epith Cells Many per lpf (None-Few) H 08/15/16 01:35 - Microbiology Findings Microbiology Findings: Microbiology, Last 48 Hours 08/15/16 16:20 Sputum Culture - Preliminary Sputum - Clinical Findings Intake & Output: Intake & Output 08/16/16 08/17/16 08/17/16 23:59 07:59 15:59 Intake Total 200 / 200 200 / 200 Output Total 550 / 550 600 / 600 Balance -350 / -350 -400 / -400 Consult Discharge Plan - Plan Referrals: En Pereira DO [Primary Care Provider] - <Betsy Valle - Last Filed: 08/17/16 19:39> All Systems: A 10-system review of systems was performed and is negative for pertinent findings except as documented above in the HPI. Physical Examination Vital Signs: Vital Signs, Last 4 Hours Temp Pulse Resp BP Pulse Ox 08/17/16 18:00 65 12 88/53 96 08/17/16 17:48 12 97 08/17/16 17:00 68 13 90/51 97 08/17/16 16:33 12 96 08/17/16 16:00 64 15 81/51 96 08/17/16 15:51 97.3 F L Ventilator Settings Ventilator Settings: Ventilator Settings, Last 8 Hours Ventilator Mode VC+ Ventilator Mode VC+ Ventilator Mode VC+ Ventilator Mode VC+ Ventilator Mode VC+ Ventilator Mode VC+ Ventilator Mode VC+ Ventilator Mode VC+ Ventilator Mode VC+ Ventilator Tidal Volume 500 Setting Ventilator Tidal Volume 450 Setting Ventilator Tidal Volume 450 Setting Ventilator Tidal Volume 450 Setting Ventilator Tidal Volume 450 Setting Ventilator Tidal Volume 450 Setting Ventilator Tidal Volume 450 Setting Ventilator Tidal Volume 400 Setting Ventilator Tidal Volume 450 Setting Ventilator Tidal Volume 450 Setting Ventilator Tidal Volume 450 Setting Ventilator Respiratory Rate 12 Setting Ventilator Respiratory Rate 12 Setting Ventilator Respiratory Rate 12 Setting Ventilator Respiratory Rate 12 Setting Ventilator Respiratory Rate 12 Setting Ventilator Respiratory Rate 12 Setting Ventilator Respiratory Rate 12 Setting Ventilator Respiratory Rate 12 Setting Ventilator Respiratory Rate 12 Setting Ventilator Respiratory Rate 12 Setting Ventilator Respiratory Rate 12 Setting Actual Respiratory Rate 12 Actual Respiratory Rate 12 Actual Respiratory Rate 13 Actual Respiratory Rate 13 Actual Respiratory Rate 13 Actual Respiratory Rate 13 Actual Respiratory Rate 15 Actual Respiratory Rate 14 Actual Respiratory Rate 13 Actual Respiratory Rate 13 Actual Respiratory Rate 12 Positive End Expiratory 5 Pressure Positive End Expiratory 5 Pressure Positive End Expiratory 5 Pressure Positive End Expiratory 5 Pressure Positive End Expiratory 5 Pressure Positive End Expiratory 5 Pressure Positive End Expiratory 5 Pressure Positive End Expiratory 5 Pressure Positive End Expiratory 5 Pressure Positive End Expiratory 5 Pressure Positive End Expiratory 5 Pressure Peak Inspiratory Airway 26 Pressure Peak Inspiratory Airway 24 Pressure Peak Inspiratory Airway 24 Pressure Peak Inspiratory Airway 24 Pressure Peak Inspiratory Airway 25 Pressure Peak Inspiratory Airway 25 Pressure Peak Inspiratory Airway 23 Pressure Peak Inspiratory Airway 20 Pressure Peak Inspiratory Airway 22 Pressure Peak Inspiratory Airway 20 Pressure Peak Inspiratory Airway 23 Pressure Results - Laboratory Findings CBC and BMP: 08/17/16 03:55 08/17/16 03:55 ABG ABG pH 7.25 pH Units (7.32-7.45) L 08/17/16 10:53 ABG pCO2 59 mmHg (35-45) H 08/17/16 10:53 ABG pO2 170 mmHg (85-104) H 08/17/16 10:53 ABG O2 Saturation 99 % (95-98) H 08/17/16 10:53 Abnormal lab findings: Abnormal lab results WBC 13.8 K/mcL (4.3-11.1) H D 08/17/16 03:55 RBC 3.98 M/mcL (4.19-5.50) L 08/17/16 03:55 Hgb 11.1 g/dL (12.9-16.9) L 08/17/16 03:55 Hct 36.0 % (37.5-50.1) L 08/17/16 03:55 MCH 27.9 pg (28.0-33.3) L 08/17/16 03:55 MCHC 30.8 g/dL (31.6-35.5) L 08/17/16 03:55 Neutrophils # 11.7 K/mcL (1.6-8.9) H 08/17/16 03:55 ABG pH 7.25 pH Units (7.32-7.45) L 08/17/16 10:53 ABG pCO2 59 mmHg (35-45) H 08/17/16 10:53 ABG pO2 170 mmHg (85-104) H 08/17/16 10:53 ABG Total CO2 27.7 mEq/L (20-26) H 08/17/16 10:53 ABG O2 Saturation 99 % (95-98) H 08/17/16 10:53 Potassium 5.0 mEq/L (3.5-4.5) H 08/17/16 03:55 BUN 42 mg/dL (8-26) H D 08/17/16 03:55 Creatinine 1.77 mg/dL (0.72-1.25) H D 08/17/16 03:55 Est GFR ( Amer) 45 (> 60) L 08/17/16 03:55 Est GFR (Non-Af Amer) 37 (> 60) L 08/17/16 03:55 Glucose 107 mg/dL (70-99) H 08/17/16 03:55 POC Glucose 162 (58-89) H 08/17/16 19:29 Calcium 8.2 mg/dL (8.6-10.8) L 08/17/16 03:55 Urine Ketones Trace mg/dL (Negative) H 08/15/16 01:35 Urine Bilirubin Small (Negative) H 08/15/16 01:35 Urine Microscopic RBC 3-5 per hpf (0-3) H 08/15/16 01:35 Ur Squamous Epith Cells Many per lpf (None-Few) H 08/15/16 01:35 - Microbiology Findings Microbiology Findings: Microbiology, Last 48 Hours 08/15/16 16:20 Sputum Culture - Preliminary Sputum - Clinical Findings Intake & Output: Intake & Output 08/17/16 08/17/16 08/17/16 07:59 15:59 23:59 Intake Total 200 / 200 553 / 553 385 / 385 Output Total 600 / 600 100 / 100 Balance -400 / -400 453 / 453 385 / 385 - Attending Attestation I examined this patient and my medical decision-making was reviewed with the DIGITAL MEASUREMENT ADVISOR/PA/Advanced Practice Nurse/Resident Physician. I agree with the documented findings, disposition and treatment plan as described except to the extent set forth below. Patient seen and examined. Labs, radiology, chart personally reviewed. Agree with resident's history and physical, assessment, plan with following comments: SISAL PICKER: Patient was becoming more lethargic and not following commands, Pulmonary: Patient was not tolerating BiPAP/NIV and decision made to place patient on invasive mechanical ventilation to support his ventilation and oxygenation. Patient still had respiratory acidosis after intubation and changed vent setting to correct that. Continue bronchodilators and systemic steroid. Family is aware of the events. Cardiovascular: stable GI: Nutrition per dietary and GI prophylaxis per routine Heme: DVT prophylaxis per routine ID: Continue antibiotics and plan to de-escalation Renal; urine out put and renal funtion reviewed Endorcine: blood glucose is monitored Lines: all lines checked and no evidence of infections Skin: skin care to prevent pressure ulcers per nursing routine care I spent 35 min of Critical Care time with this patient. It involved decision making of high complexity to assess, manipulate, and support vital organ system failure and/or to prevent further life threatening deterioration of the patient' s condition. The time involved in the performance of separately reportable procedures was not counted toward critical care time.
[2016-08-17 11:05] LABS: Blood Gas FiO2 45 %
--- NOTE | 2016-08-17 11:33 | Procedure Note ---
<Henry Richey - Last Filed: 08/17/16 18:07> Date of procedure: 08/17/16 Pre-op diagnosis: acute on chronic resp failure Post-op diagnosis: same Procedure: A time-out was completed verifying correct patient, procedure, site, positioning , and special equipment if applicable. The patient was placed in a flat position. Sedation was obtained using Propofol 200mg, and additionally with Etomidate 20mg. The patient was easily ventilated using an ambu bag. The MAC 3 BLADE was used and inserted into the oropharynx at which time there was a Grade 1 view of the vocal cords. A 8.0-rwandan endotracheal tube was inserted and visualized going through the vocal cords. The stylette was removed. Colorimetric change was visualized on the CO2 meter. Breath sounds were heard in both lung richey equally. The endotracheal tube was placed at 22 cm, measured at the teeth. Additional 100mg Propofol given after procedure. Attending and Residents present for the entire procedure. A chest x-ray was ordered to assess for pneumothorax and verify endotrachealtube placement. The patient tolerated the procedure well and there were no complications. Anesthesia: IV sedation Surgeon: En Diane Headwaiter/Headwaitress: Henry Richey Estimated blood loss (cc): 0 IV fluids (cc): 40 Urine output (cc): 0 Pathology: none sent Condition: critical Disposition: ICU <Betsy Valle - Last Filed: 08/17/16 19:24> Procedure: I have personally supervised residents intubating Mr. Gregg and I gave him medications. Patient tolerated procedure without immediate complications.
[2016-08-17] MEDS: 0.9 % Sodium Chloride 1,000 ML IVC SCH ×3 (11:52→21:30)
[2016-08-17] MEDS: MethylPREDNISolone 40 MG/ML VIAL IVP SCH ×2 (11:52→17:00)
[2016-08-17] MEDS: Lacri-Lube 3.5 GM TUBE BOTH EYES SCH ×4 (11:52→22:36)
--- NOTE | 2016-08-17 12:53 | ECHO - Doppler Report ---
Echocardiogram Name: Angus Gregg Date of Study: 08/17/2016 Date: 1940 Ht: 66.0 in Medical Record#: [id number] Age: 76 Wt: 126.0 lb Gender: Male BSA: 1.64 Order #: [id number] Location: [facility] Room #: [facility] Reading Physician: Elayne Velazquez DO [employer] Crew Chief: Yandy Urbano RVT, [facility] Ordering Physician: Derrick Eisenberg MD Primary Physician: None Indications: Respiratory failure Impressions: Technically challenging study. Patient on ventilator. LV systolic function appears normal in views provided, EF 60%. Normal right ventricular size and function. Not all valves were well visualized. Patient on ventilator. Cannot estimate RVSP. Left Ventricular Wall Motion: Rest Echo Findings The apex, apical inferior, mid inferior, basal inferior, apical anterior, mid anterior, basal anterior, mid anterior septal, mid inferior lateral, basal anterior septal and basal inferior lateral vigil were not visualized. All other wall segments showed normal motion. Findings: Study Quality * Technically sub-optimal due to poor echocardiographic windows. Patient on ventilator. ECG Findings * Normal sinus rhythm. Aortic Valve * No aortic regurgitation. * No aortic stenosis. * Aortic valve not well visualized. Mitral Valve * No mitral regurgitation. * Normal mitral valve structure. * No mitral stenosis. Tricuspid Valve * Trace tricuspid regurgitation. * Normal tricuspid valve structure. Left Ventricle * Mild left ventricular diastolic dysfunction. * LVEF 60%. * Normal LV chamber size, wall thickness and function. Right Ventricle * Normal right ventricular structure and function. IVC * The IVC is not well evaluated. Left Atrium * Normal left atrial size. Right Atrium * Normal right atrial size. Pericardium * There is no pericardial effusion present. Pulmonary Artery * Pulmonary artery not well visualized. Interatrial Septum * Interatrial septum not well evaluated. Pulmonic Valve * Pulmonic valve is not well visualized. Aorta * Not well visualized. History 2012 a Previous Echo was performed. Measurements: BP: 110/ 67 2D Normal Values IVSd: 1.00 cm 0.6 - 1.0 cm LVIDd: 4.30 cm 3.7 - 5.6 cm LVPWd: .80 cm 0.6 - 1.1 cm LVIDs: 3.00 cm 1.5 - 3.6 cm AO: 3.20 cm < 4.0 cm LA: 2.80 cm 2.0 - 4.0cm %FS: 30.20 cm >25 % LA volume: 28 Mitral Valve Peak E:.88 m/sec Peak A:1.16 m/sec E/A Ratio:0.8 Tricuspid Valve TV Regurg Peak Grad: 28.00mmHg TV Regurg Peak William: 2.65m/sec Updated by Elayne Velazquez on 08/17/2016 12:46:15 PM electronically signed on 08/17/2016 12:48:05 PM with status of Final Wall Motion Wall: 1=Normal, 2=Hypokinesis, 3=Akinesis, 4=Dyskinesis, 5=Aneurysmal, 6=Hyperkinetic, X=Not Visualized (Blank)=Missing
[2016-08-17] MEDS ORDERED: *HR* Etomidate 20 MG/10 ML AMPUL IVP ONE (14:21)
[2016-08-17] MEDS: Chlorhexidine Rinse 15 ML MOUTHWASH MM SCH (20:15)
[2016-08-18] MEDS: Ipratropium/Albuterol Neb 3 ML IH SCH ×7 (00:11→23:33)
[2016-08-18] MEDS: Albuterol 2.5 MG/3 ML NEBULIZER IH SCH ×4 (00:12→11:13)
[2016-08-18] MEDS: MethylPREDNISolone 40 MG/ML VIAL IVP SCH ×4 (00:15→17:17)
[2016-08-18] MEDS: Lacri-Lube 3.5 GM TUBE BOTH EYES SCH ×5 (03:54→20:26)
[2016-08-18 04:14] LABS: Hemoglobin 10.1 g/dL (12.9-16.9); Immature Granulocytes % 0.4 % (0-4); Lymphocytes # 0.2 K/mcL (0.6-4.6); Lymphocytes % 4.3 %; Mean Corpuscular HGB Conc 30.6 g/dL (31.6-35.5); Mean Corpuscular Hemoglobin 28.6 pg (28.0-33.3); Mean Corpuscular Volume 93.5 fL (83.0-100.0); Monocytes # 0.2 K/mcL (0.0-1.3); Monocytes % 3.3 %; Neutrophils # 4.7 K/mcL (1.6-8.9); Platelet Count 197 K/mcL (140-400); Red Blood Count 3.53 M/mcL (4.19-5.50); Red Cell Distribution Width 13.8 % (11.5-14.5)
[2016-08-18 04:23] LABS: Albumin 2.8 g/dL (3.5-5.0); Albumin/Globulin Ratio 0.9 (1.1-2.2); Bilirubin,Total 0.2 mg/dL (0.2-1.2); Globulin 3.1 g/dL (2.4-3.5); Potassium 4.9 mEq/L (3.5-4.5); Total Protein 5.9 g/dL (6.0-8.3)
[2016-08-18] MEDS: FentaNYL (PF) 1,000 MCG in 0.9 % Sodium Chloride 80 ML IVC SCH ×2 (04:47→20:19)
[2016-08-18 04:49] LABS: ABG Base Excess -2.7 mEq/L (-2.0 to 3.0); ABG Oxygen Saturation 96 % (95-98); ABG PCO2 57 mmHg (35-45); ABG PH 7.25 pH Units (7.32-7.45); ABG PO2 97 mmHg (85-104); ABG TCO2 26.7 mEq/L (20-26); Blood Gas FiO2 40 %
[2016-08-18] MEDS: LEVOFLOXACIN 750 MG/150 ML IVPB SCH (04:51)
[2016-08-18] MEDS: Budesonide/Formoterol 160/4.5 MDI IH SCH ×2 (07:31→21:53)
[2016-08-18] MEDS: Pantoprazole 40 MG VIAL IVP SCH (08:50)
[2016-08-18] MEDS: *HR* Heparin 5,000 UNIT/ML VIAL SQ SCH ×2 (08:51→20:25)
[2016-08-18] MEDS: Chlorhexidine Rinse 15 ML MOUTHWASH MM SCH ×2 (08:51→20:25)
[2016-08-18] MEDS: Magnesium Oxide 400 MG TABLET PO SCH (08:52)
[2016-08-18] MEDS: 0.9 % Sodium Chloride 1,000 ML IVC SCH ×3 (08:52→20:31)
[2016-08-18] MEDS: amLODIPine 5 MG TABLET PO SCH (08:52)
[2016-08-18] MEDS ORDERED: D5% in Water 1,000 ML IV PRN (09:51)
[2016-08-18] MEDS ORDERED: *HR* Dextrose 50 % in Water (Syg) 50 ML SYRINGE IVP PRN (09:51)
[2016-08-18] MEDS ORDERED: Dextrose Gel 15 GM PO PRN ×2 (09:51)
[2016-08-18] MEDS ORDERED: Magnesium Sulfate 2 GM in D5% in Water 100 ML IVPB PRN (10:42)
--- NOTE | 2016-08-18 11:19 | Pulmonology Progress Note ---
<En Diane Kimani - Last Filed: 08/18/16 17:27> Date of Encounter: 08/18/16 Time of Encounter: 08:00 Assessment and Plan (1) Acute and chronic respiratory failure Current Visit: Yes Status: Acute Mr. Gregg has known history of COPD with baseline 2-3 L oxygen at home. Presented with COPD exacerbation and acute respiratory failure. Original ABG demonstrated pH 7.17, PCO2 76, PO2 80, bicarbonate 27.7. He required BiPAP. Initially started on Levaquin every 48 hours. By mouth prednisone. 08/17/2016 Examination today demonstrated poor bronchial vesicular breath sounds with diffuse expiratory wheeze. Tachypnea with labored breaths forced inspiratory expiratory ventilation with secondary muscle use. Post intubation ABG demonstrated a pH of 7.25 with a PCO2 of 59 PaO2 of 170 and a bicarbonate of 25.9. 08/18/2016, patient examined today at bedside demonstrated breath stacking on ventilation and required alteration to his ventilatory settings. He failed CPAP trials morning. ABG was 7.25, PCO2 57, PO2 97, bicarbonate 25.0. Plan to repeat ABG this morning. Plan: - Continue ICU care - Continue mechanical ventilation with propofol and fentanyl sedation. - Daily chest x-rays and ABG to evaluate ET tube placement and oxygenation. - Continue IV Solu-Medrol 40 mg every 6 hours - Scheduled DuoNeb treatments. - Continue Levaquin 750 every 48 hours Qualifiers: Respiratory failure complication: unspecified whether with hypoxia or hypercapnia Qualified Code(s): J96.20 - Acute and chronic respiratory failure , unspecified whether with hypoxia or hypercapnia (2) Acute exacerbation of chronic obstructive airways disease Current Visit: Yes Status: Acute Known history of COPD with home oxygen 2-3 L. Home respiratory inhalers included Spiriva 18 g inhaled daily, Flovent 2 puffs IH twice a day. Admitted with acute on chronic respiratory failure likely COPD exacerbation cannot rule out other causes. Plan: - As described above. (3) Acute on chronic kidney failure Current Visit: Yes Status: Acute Review of previous creatinine levels and GFR is demonstrate baseline creatinine around 1.09, GFR on admission was greater than 60. Likely secondary to tachypnea and hypoxic respiratory failure. Ins and outs demonstrate negative fluid balance. 08/18/2016 age is seen and examined, labs were reviewed. Patient continues to have worsening of his creatinine and GFR despite starting IV fluid rehydration yesterday. Cumulative fluid balance is +3 L. We will continue to monitor renal function and renal output. Plan: - Patient is currently intubated. - Normal saline at 100 mL's per hour - Monitor renal function with an labs - Avoid nephrotoxic medications and renally dose antibiotics. (4) Hyperkalemia, diminished renal excretion Current Visit: Yes Status: Acute Hyperkalemia slightly improved from yesterday with a potassium 4.9. Continue fluid rehydration, likely secondary to poor renal output. Plan: -Recheck potassium level with a.m. labs. - Avoid potassium sparing antibiotics/medications (5) Hypertension Current Visit: Yes Status: Chronic Patient had elevated blood pressures prior to transfer to the ICU. Blood pressure currently controlled, oral antihypertensives were held. Current blood pressure is 91/55 while patient is intubated on propofol. 08/18/2016 patient's blood pressures continued to be stable, continue to hold antihypertensives. Plan: - Hold antihypertensives Qualifiers: Hypertension type: essential hypertension Qualified Code(s): I10 - Essential (primary) hypertension (6) DVT prophylaxis Current Visit: Yes Status: Acute Heparin 5000 units subcutaneous twice a day Subjective Principal diagnosis: acute resp failure, AMS Interval history: Mr. Gregg has been seen about the patient bedside this morning, he remains sedated and intubated requiring mechanical ventilation. Patient failed CPAP trial this morning. No significant events overnight. Objective PUL Vital signs: Last Vital Signs Temp 96.3 F L 08/18/16 07:39 Pulse 93 08/18/16 10:00 Resp 10 08/18/16 11:09 BP 107/81 08/18/16 11:09 Pulse Ox 95 08/18/16 11:09 General description: 76-year-old male intubated and sedated on mechanical ventilation HEENT: Normocephalic atraumatic, pupils equal reactive, nasal cavity patent and open. oral mucosa is dry, edentulous, endotracheal tube in place. Neck is supple, trachea midline. secondary muscles with respiratory effort. Thoracic cavity: Chest is symmetric bilateral correlating with respiratory effort, labored breathing, tachypnea, secondary muscle use, poor thoracic expansion. Respiratory: Diffuse diminished bronchovesicular breath sounds with diffuse expiratory wheeze, rhonchi appreciated in the bilateral lung bases Cardiac: Tachycardic. Bilateral radial pulses were 2+ Abdomen: Distended, nontender to palpation, abdominal wall movement correlating with inspiratory efforts. Extremities are symmetric bilateral, skin is dry with poor skin turgor. Ventilator Settings Ventilator Settings: Ventilator Settings, Last 8 Hours Ventilator Mode CPAP Ventilator Mode CPAP Ventilator Mode CPAP Ventilator Mode CPAP Ventilator Mode VC+ Ventilator Mode VC+ Ventilator Mode VC+ Ventilator Mode VC+ Ventilator Mode VC+ Ventilator Mode VC+ Ventilator Tidal Volume 500 Setting Ventilator Tidal Volume 500 Setting Ventilator Tidal Volume 500 Setting Ventilator Tidal Volume 500 Setting Ventilator Tidal Volume 500 Setting Ventilator Tidal Volume 500 Setting Ventilator Respiratory Rate 12 Setting Ventilator Respiratory Rate 12 Setting Ventilator Respiratory Rate 12 Setting Ventilator Respiratory Rate 12 Setting Ventilator Respiratory Rate 12 Setting Ventilator Respiratory Rate 12 Setting Actual Respiratory Rate 10 Actual Respiratory Rate 8 Actual Respiratory Rate 14 Actual Respiratory Rate 14 Actual Respiratory Rate 12 Actual Respiratory Rate 12 Actual Respiratory Rate 12 Actual Respiratory Rate 12 Actual Respiratory Rate 12 Positive End Expiratory 5 Pressure Positive End Expiratory 5 Pressure Positive End Expiratory 5 Pressure Positive End Expiratory 5 Pressure Positive End Expiratory 5 Pressure Positive End Expiratory 5 Pressure Positive End Expiratory 5 Pressure Positive End Expiratory 5 Pressure Positive End Expiratory 5 Pressure Positive End Expiratory 5 Pressure Peak Inspiratory Airway 19 Pressure Peak Inspiratory Airway 19 Pressure Peak Inspiratory Airway 18 Pressure Peak Inspiratory Airway 18 Pressure Peak Inspiratory Airway 32 Pressure Peak Inspiratory Airway 31 Pressure Peak Inspiratory Airway 27 Pressure Peak Inspiratory Airway 29 Pressure Peak Inspiratory Airway 26 Pressure Results - Laboratory Findings CBC and BMP: 08/18/16 04:00 08/18/16 04:00 ABG ABG pH 7.25 pH Units (7.32-7.45) L 08/18/16 04:30 ABG pCO2 57 mmHg (35-45) H 08/18/16 04:30 ABG pO2 97 mmHg (85-104) 08/18/16 04:30 ABG O2 Saturation 96 % (95-98) 08/18/16 04:30 Abnormal lab findings: Abnormal lab results RBC 3.53 M/mcL (4.19-5.50) L 08/18/16 04:00 Hgb 10.1 g/dL (12.9-16.9) L 08/18/16 04:00 Hct 33.0 % (37.5-50.1) L 08/18/16 04:00 MCHC 30.6 g/dL (31.6-35.5) L 08/18/16 04:00 Lymphocytes # 0.2 K/mcL (0.6-4.6) L 08/18/16 04:00 ABG pH 7.25 pH Units (7.32-7.45) L 08/18/16 04:30 ABG pCO2 57 mmHg (35-45) H 08/18/16 04:30 ABG Total CO2 26.7 mEq/L (20-26) H 08/18/16 04:30 ABG Base Excess -2.7 mEq/L (-2.0 to 3.0) L 08/18/16 04:30 Potassium 4.9 mEq/L (3.5-4.5) H 08/18/16 04:00 BUN 63 mg/dL (8-26) H D 08/18/16 04:00 Creatinine 2.08 mg/dL (0.72-1.25) H 08/18/16 04:00 Est GFR ( Amer) 38 (> 60) L 08/18/16 04:00 Est GFR (Non-Af Amer) 31 (> 60) L 08/18/16 04:00 BUN/Creatinine Ratio 30 (6-26) H 08/18/16 04:00 Glucose 224 mg/dL (70-99) H 08/18/16 04:00 POC Glucose 239 (58-89) H 08/18/16 07:16 Calculated Osmolality 311 (280-300) H 08/18/16 04:00 Calcium 8.0 mg/dL (8.6-10.8) L 08/18/16 04:00 Alkaline Phosphatase 32 Units/L (38-126) L 08/18/16 04:00 Serum Total Protein 5.9 g/dL (6.0-8.3) L 08/18/16 04:00 Albumin 2.8 g/dL (3.5-5.0) L 08/18/16 04:00 Albumin/Globulin Ratio 0.9 (1.1-2.2) L 08/18/16 04:00 Urine Ketones Trace mg/dL (Negative) H 08/15/16 01:35 Urine Bilirubin Small (Negative) H 08/15/16 01:35 Urine Microscopic RBC 3-5 per hpf (0-3) H 08/15/16 01:35 Ur Squamous Epith Cells Many per lpf (None-Few) H 08/15/16 01:35 - Microbiology Findings Microbiology Findings: Microbiology, Last 48 Hours 02/25/17 16:20 Sputum Culture - Final Sputum - Clinical Findings Intake & Output: Intake & Output 08/17/16 08/18/16 08/18/16 23:59 07:59 15:59 Intake Total 945 / 945 660 / 660 Output Total 75 / 75 350 / 350 0 / 0 Balance 870 / 870 310 / 310 0 / 0 Weight 57.924 kg Consult Discharge Plan - Plan Referrals: En Pereira DO [Primary Care Provider] - <Betsy Valle - Last Filed: 08/18/16 20:57> Objective PUL Vital signs: Last Vital Signs Temp 98.3 F 08/18/16 20:00 Pulse 60 08/18/16 20:00 Resp 12 08/18/16 20:00 BP 101/54 08/18/16 20:00 Pulse Ox 98 08/18/16 20:00 Ventilator Settings Ventilator Settings: Ventilator Settings, Last 8 Hours Ventilator Mode VC+ Ventilator Mode VC+ Ventilator Mode VC+ Ventilator Mode VC+ Ventilator Mode VC+ Ventilator Mode VC+ Ventilator Mode VC+ Ventilator Mode VC+ Ventilator Tidal Volume 500 Setting Ventilator Tidal Volume 500 Setting Ventilator Tidal Volume 500 Setting Ventilator Tidal Volume 500 Setting Ventilator Tidal Volume 500 Setting Ventilator Tidal Volume 500 Setting Ventilator Tidal Volume 500 Setting Ventilator Tidal Volume 500 Setting Ventilator Tidal Volume 500 Setting Ventilator Respiratory Rate 12 Setting Ventilator Respiratory Rate 12 Setting Ventilator Respiratory Rate 12 Setting Ventilator Respiratory Rate 12 Setting Ventilator Respiratory Rate 12 Setting Ventilator Respiratory Rate 12 Setting Ventilator Respiratory Rate 12 Setting Ventilator Respiratory Rate 12 Setting Ventilator Respiratory Rate 12 Setting Actual Respiratory Rate 12 Actual Respiratory Rate 12 Actual Respiratory Rate 12 Actual Respiratory Rate 12 Actual Respiratory Rate 12 Actual Respiratory Rate 12 Actual Respiratory Rate 13 Actual Respiratory Rate 18 Actual Respiratory Rate 16 Positive End Expiratory 5 Pressure Positive End Expiratory 5 Pressure Positive End Expiratory 5 Pressure Positive End Expiratory 5 Pressure Positive End Expiratory 5 Pressure Positive End Expiratory 5 Pressure Positive End Expiratory 5 Pressure Positive End Expiratory 5 Pressure Positive End Expiratory 5 Pressure Peak Inspiratory Airway 28 Pressure Peak Inspiratory Airway 25 Pressure Peak Inspiratory Airway 24 Pressure Peak Inspiratory Airway 23 Pressure Peak Inspiratory Airway 27 Pressure Peak Inspiratory Airway 22 Pressure Peak Inspiratory Airway 34 Pressure Peak Inspiratory Airway 11 Pressure Peak Inspiratory Airway 21 Pressure Results - Laboratory Findings CBC and BMP: 08/18/16 04:00 08/18/16 04:00 ABG ABG pH 7.22 pH Units (7.32-7.45) L 08/18/16 11:58 ABG pCO2 59 mmHg (35-45) H 08/18/16 11:58 ABG pO2 67 mmHg (85-104) L 08/18/16 11:58 ABG O2 Saturation 89 % (95-98) L 08/18/16 11:58 Abnormal lab findings: Abnormal lab results RBC 3.53 M/mcL (4.19-5.50) L 08/18/16 04:00 Hgb 10.1 g/dL (12.9-16.9) L 08/18/16 04:00 Hct 33.0 % (37.5-50.1) L 08/18/16 04:00 MCHC 30.6 g/dL (31.6-35.5) L 08/18/16 04:00 Lymphocytes # 0.2 K/mcL (0.6-4.6) L 08/18/16 04:00 ABG pH 7.22 pH Units (7.32-7.45) L 08/18/16 11:58 ABG pCO2 59 mmHg (35-45) H 08/18/16 11:58 ABG pO2 67 mmHg (85-104) L 08/18/16 11:58 ABG O2 Saturation 89 % (95-98) L 08/18/16 11:58 ABG Base Excess -4.2 mEq/L (-2.0 to 3.0) L 08/18/16 11:58 Potassium 4.9 mEq/L (3.5-4.5) H 08/18/16 04:00 BUN 63 mg/dL (8-26) H D 08/18/16 04:00 Creatinine 2.08 mg/dL (0.72-1.25) H 08/18/16 04:00 Est GFR ( Amer) 38 (> 60) L 08/18/16 04:00 Est GFR (Non-Af Amer) 31 (> 60) L 08/18/16 04:00 BUN/Creatinine Ratio 30 (6-26) H 08/18/16 04:00 Glucose 224 mg/dL (70-99) H 08/18/16 04:00 POC Glucose 233 (58-89) H 08/18/16 19:19 Calculated Osmolality 311 (280-300) H 08/18/16 04:00 Calcium 8.0 mg/dL (8.6-10.8) L 08/18/16 04:00 Alkaline Phosphatase 32 Units/L (38-126) L 08/18/16 04:00 Serum Total Protein 5.9 g/dL (6.0-8.3) L 08/18/16 04:00 Albumin 2.8 g/dL (3.5-5.0) L 08/18/16 04:00 Albumin/Globulin Ratio 0.9 (1.1-2.2) L 08/18/16 04:00 Urine Ketones Trace mg/dL (Negative) H 08/15/16 01:35 Urine Bilirubin Small (Negative) H 08/15/16 01:35 Urine Microscopic RBC 3-5 per hpf (0-3) H 08/15/16 01:35 Ur Squamous Epith Cells Many per lpf (None-Few) H 08/15/16 01:35 - Microbiology Findings Microbiology Findings: Microbiology, Last 48 Hours 08/15/16 16:20 Sputum Culture - Final Sputum - Clinical Findings Intake & Output: Intake & Output 08/18/16 08/18/16 08/18/16 07:59 15:59 23:59 Intake Total 660 / 660 98 / 98 1913 / 1913 Output Total 350 / 350 150 / 150 200 / 200 Balance 310 / 310 -52 / -52 1713 / 1713 Weight 57.924 kg - Attending Attestation I examined this patient and my medical decision-making was reviewed with the MANAGER RESPIRATORY CARE/PA/Advanced Practice Nurse/Resident Physician. I agree with the documented findings, disposition and treatment plan as described except to the extent set forth below. Patient seen and examined. Labs, radiology, chart personally reviewed. Agree with resident's history and physical, assessment, plan with following comments: SCREEDMAN/LABORER: Patient doens't follows commands, Need sedation for vent synchrony. Pulmonary: Acceptable oxygenation and patient had problem with ventilation with evidence of autoPEEP and breath stacking. Changed to pressure support and improved in his vent synchrony, however his minute ventilation was low and tried to lower sedation to increase minute ventilation. Discussed with at bedside and explain to her about his condition. I suspect it might be difficult to liberate patient from the ventilator. Cardiovascular: stable GI: Nutrition per dietary and GI prophylaxis per routine Heme: DVT prophylaxis per routine ID: Continue antibiotics and plan to de-escalation Renal; urine out put and renal funtion reviewed Endorcine: blood glucose is monitored Lines: all lines checked and no evidence of infections Skin: skin care to prevent pressure ulcers per nursing routine care I spent 35 min of Critical Care time with this patient. It involved decision making of high complexity to assess, manipulate, and support vital organ system failure and/or to prevent further life threatening deterioration of the patient' s condition. The time involved in the performance of separately reportable procedures was not counted toward critical care time.
[2016-08-18] MEDS: Insulin LISPRO 300 UNITS/3 ML VIAL SQ SCH ×2 (11:39→17:17)
[2016-08-18 12:19] LABS: ABG Base Excess -4.2 mEq/L (-2.0 to 3.0); ABG HCO3 24.1 mEQ/L (21-27); ABG Oxygen Saturation 89 % (95-98); ABG PCO2 59 mmHg (35-45); ABG PH 7.22 pH Units (7.32-7.45); ABG PO2 67 mmHg (85-104); ABG TCO2 25.9 mEq/L (20-26); Blood Gas FiO2 40 %; Blood Gas PEEP 5 cm H2O
[2016-08-18] MEDS: niCARdipine 40 MG/200 ML MLS IVC SCH ×2 (20:19→20:20)
[2016-08-19] MEDS: Lacri-Lube 3.5 GM TUBE BOTH EYES SCH ×7 (00:25→23:41)
[2016-08-19] MEDS: MethylPREDNISolone 40 MG/ML VIAL IVP SCH ×5 (00:25→23:41)
[2016-08-19] MEDS: niCARdipine 40 MG/200 ML MLS IVC SCH ×4 (00:26→23:42)
[2016-08-19] MEDS: Insulin LISPRO 300 UNITS/3 ML VIAL SQ SCH ×5 (00:26→23:41)
[2016-08-19] MEDS: Ipratropium/Albuterol Neb 3 ML IH SCH ×6 (03:47→23:43)
[2016-08-19] MEDS: 0.9 % Sodium Chloride 1,000 ML IVC SCH ×2 (03:57→06:12)
[2016-08-19 04:17] LABS: Hematocrit 34.9 % (37.5-50.1); Hemoglobin 10.3 g/dL (12.9-16.9); Immature Granulocytes % 0.6 % (0-4); Lymphocytes # 0.2 K/mcL (0.6-4.6); Lymphocytes % 2.6 %; Mean Corpuscular HGB Conc 29.5 g/dL (31.6-35.5); Mean Corpuscular Hemoglobin 28.5 pg (28.0-33.3); Mean Corpuscular Volume 96.7 fL (83.0-100.0); Mean Platelet Volume 9.9 fL (9.4-12.4); Monocytes # 0.4 K/mcL (0.0-1.3); Monocytes % 4.6 %; Neutrophils # 7.2 K/mcL (1.6-8.9); Platelet Count 198 K/mcL (140-400); Red Blood Count 3.61 M/mcL (4.19-5.50); Red Cell Distribution Width 13.8 % (11.5-14.5); Segmented Neutrophils % 92.2 %
[2016-08-19 04:26] LABS: Calcium 7.6 mg/dL (8.6-10.8); Potassium 5.4 mEq/L (3.5-4.5)
[2016-08-19 05:31] LABS: ABG Base Excess -2.8 mEq/L (-2.0 to 3.0); ABG HCO3 25.4 mEQ/L (21-27); ABG Oxygen Saturation 85 % (95-98); ABG PCO2 62 mmHg (35-45); ABG PH 7.22 pH Units (7.32-7.45); ABG PO2 61 mmHg (85-104); ABG TCO2 27.3 mEq/L (20-26)
[2016-08-19 05:33] LABS: Blood Gas FiO2 40 %
[2016-08-19] MEDS: *HR* Heparin 5,000 UNIT/ML VIAL SQ SCH ×2 (06:12→18:25)
[2016-08-19] MEDS: Chlorhexidine Rinse 15 ML MOUTHWASH MM SCH ×2 (07:36→21:18)
[2016-08-19] MEDS: Magnesium Oxide 400 MG TABLET PO SCH (07:36)
[2016-08-19] MEDS: Pantoprazole 40 MG VIAL IVP SCH (07:36)
[2016-08-19] MEDS: amLODIPine 5 MG TABLET PO SCH (07:37)
[2016-08-19] MEDS: Budesonide/Formoterol 160/4.5 MDI IH SCH ×2 (08:48→19:43)
--- NOTE | 2016-08-19 09:14 | Pulmonology Progress Note ---
<Betsy Valle M - Last Filed: 08/19/16 11:31> Objective PUL Vital signs: Last Vital Signs Temp 98.5 F 08/19/16 07:50 Pulse 72 08/19/16 10:00 Resp 14 08/19/16 10:50 BP 104/55 08/19/16 10:00 Pulse Ox 96 08/19/16 10:50 Ventilator Settings Ventilator Settings: Ventilator Settings, Last 8 Hours Ventilator Mode VC+ Ventilator Mode VC+ Ventilator Mode VC+ Ventilator Mode VC+ Ventilator Mode VC+ Ventilator Mode VC+ Ventilator Mode VC+ Ventilator Mode VC+ Ventilator Tidal Volume 600 Setting Ventilator Tidal Volume 600 Setting Ventilator Tidal Volume 500 Setting Ventilator Tidal Volume 500 Setting Ventilator Tidal Volume 500 Setting Ventilator Tidal Volume 500 Setting Ventilator Tidal Volume 500 Setting Ventilator Tidal Volume 500 Setting Ventilator Respiratory Rate 14 Setting Ventilator Respiratory Rate 14 Setting Ventilator Respiratory Rate 12 Setting Ventilator Respiratory Rate 12 Setting Ventilator Respiratory Rate 12 Setting Ventilator Respiratory Rate 12 Setting Ventilator Respiratory Rate 12 Setting Ventilator Respiratory Rate 12 Setting Actual Respiratory Rate 14 Actual Respiratory Rate 14 Actual Respiratory Rate 14 Actual Respiratory Rate 12 Actual Respiratory Rate 14 Actual Respiratory Rate 12 Actual Respiratory Rate 12 Positive End Expiratory 5 Pressure Positive End Expiratory 5 Pressure Positive End Expiratory 5 Pressure Positive End Expiratory 5 Pressure Positive End Expiratory 5 Pressure Positive End Expiratory 5 Pressure Positive End Expiratory 5 Pressure Positive End Expiratory 5 Pressure Peak Inspiratory Airway 39 Pressure Peak Inspiratory Airway 35 Pressure Peak Inspiratory Airway 33 Pressure Peak Inspiratory Airway 33 Pressure Peak Inspiratory Airway 35 Pressure Peak Inspiratory Airway 32 Pressure Peak Inspiratory Airway 30 Pressure Results - Laboratory Findings CBC and BMP: 08/19/16 04:00 08/19/16 04:00 ABG ABG pH 7.24 pH Units (7.32-7.45) L 08/19/16 09:20 ABG pCO2 59 mmHg (35-45) H 08/19/16 09:20 ABG pO2 119 mmHg (85-104) H 08/19/16 09:20 ABG O2 Saturation 98 % (95-98) 08/19/16 09:20 Abnormal lab findings: Abnormal lab results RBC 3.61 M/mcL (4.19-5.50) L 08/19/16 04:00 Hgb 10.3 g/dL (12.9-16.9) L 08/19/16 04:00 Hct 34.9 % (37.5-50.1) L 08/19/16 04:00 MCHC 29.5 g/dL (31.6-35.5) L 08/19/16 04:00 Lymphocytes # 0.2 K/mcL (0.6-4.6) L 08/19/16 04:00 ABG pH 7.24 pH Units (7.32-7.45) L 08/19/16 09:20 ABG pCO2 59 mmHg (35-45) H 08/19/16 09:20 ABG pO2 119 mmHg (85-104) H 08/19/16 09:20 ABG Total CO2 27.1 mEq/L (20-26) H 08/19/16 09:20 ABG Base Excess -2.5 mEq/L (-2.0 to 3.0) L 08/19/16 09:20 Potassium 5.4 mEq/L (3.5-4.5) H 08/19/16 04:00 Chloride 112 mEq/L (98-109) H 08/19/16 04:00 BUN 71 mg/dL (8-26) H 08/19/16 04:00 Creatinine 1.98 mg/dL (0.72-1.25) H 08/19/16 04:00 Est GFR ( Amer) 40 (> 60) L 08/19/16 04:00 Est GFR (Non-Af Amer) 33 (> 60) L 08/19/16 04:00 BUN/Creatinine Ratio 36 (6-26) H 08/19/16 04:00 Glucose 174 mg/dL (70-99) H 08/19/16 04:00 POC Glucose 186 (58-89) H 08/19/16 11:15 Calculated Osmolality 317 (280-300) H 08/19/16 04:00 Calcium 7.6 mg/dL (8.6-10.8) L 08/19/16 04:00 Alkaline Phosphatase 32 Units/L (38-126) L 08/18/16 04:00 Serum Total Protein 5.9 g/dL (6.0-8.3) L 08/18/16 04:00 Albumin 2.8 g/dL (3.5-5.0) L 08/18/16 04:00 Albumin/Globulin Ratio 0.9 (1.1-2.2) L 08/18/16 04:00 Urine Ketones Trace mg/dL (Negative) H 08/15/16 01:35 Urine Bilirubin Small (Negative) H 08/15/16 01:35 Urine Microscopic RBC 3-5 per hpf (0-3) H 08/15/16 01:35 Ur Squamous Epith Cells Many per lpf (None-Few) H 08/15/16 01:35 - Microbiology Findings Microbiology Findings: Microbiology, Last 48 Hours 08/15/16 16:20 Sputum Culture - Final Sputum - Clinical Findings Intake & Output: Intake & Output 08/18/16 08/19/16 08/19/16 23:59 07:59 15:59 Intake Total 2065 / 2065 1454 / 1454 Output Total 200 / 200 450 / 450 Balance 1865 / 1865 1004 / 1004 Weight 62.596 kg Consult Discharge Plan - Plan Referrals: En Pereira DO [Primary Care Provider] - - Attending Attestation I examined this patient and my medical decision-making was reviewed with the FORENSIC ENGINEER/PA/Advanced Practice Nurse/Resident Physician. I agree with the documented findings, disposition and treatment plan as described except to the extent set forth below. Patient seen and examined. Labs, radiology, chart personally reviewed. 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 Patient didn't tolerated VC + and better synchrony with only AC mode. Patient still have respiratory acidosis and changed vent setting with increase TV. Patient need CPAP trial and due to his poor prognosis, will consult palliative care.Patient may need trach/ PEG Cardiovascular: stable GI: Nutrition per dietary and GI prophylaxis per routine Heme: DVT prophylaxis per routine ID: Continue antibiotics and plan to de-escalation Renal; urine out put and renal funtion reviewed Endorcine: blood glucose is monitored Lines: all lines checked and no evidence of infections Skin: skin care to prevent pressure ulcers per nursing routine care I spent 35 min of Critical Care time with this patient. It involved decision making of high complexity to assess, manipulate, and support vital organ system failure and/or to prevent further life threatening deterioration of the patient' s condition. The time involved in the performance of separately reportable procedures was not counted toward critical care time. <En Diane - Last Filed: 08/19/16 13:49> Date of Encounter: 08/19/16 Time of Encounter: 08:59 Assessment and Plan (1) Acute and chronic respiratory failure Current Visit: Yes Status: Acute Mr. Gregg has known history of COPD with baseline 2-3 L oxygen at home. Presented with COPD exacerbation and acute respiratory failure. Original ABG demonstrated pH 7.17, PCO2 76, PO2 80, bicarbonate 27.7. He required BiPAP. Initially started on Levaquin every 48 hours. By mouth prednisone. 08/17/2016 Examination today demonstrated poor bronchial vesicular breath sounds with diffuse expiratory wheeze. Tachypnea with labored breaths forced inspiratory expiratory ventilation with secondary muscle use. Post intubation ABG demonstrated a pH of 7.25 with a PCO2 of 59 PaO2 of 170 and a bicarbonate of 25.9. 08/18/2016, patient examined today at bedside demonstrated breath stacking on ventilation and required alteration to his ventilatory settings. He failed CPAP trials morning. ABG was 7.25, PCO2 57, PO2 97, bicarbonate 25.0. Plan to repeat ABG this morning. 08/19/2016 patient examined at bedside this morning, demonstrated difficulty while on mechanical ventilation required Ambu bag and readjustment of ventilatory settings. Original ABG 7.22 PCO2 62 PO2 61 bicarbonate 25.4, repeat ABG after vent setting adjustment pH 7.24, PCO2 59, PO2 119, bicarbonate 25.3. Will attempt CPAP trial this afternoon. Plan: - Continue ICU care - Continue mechanical ventilation with propofol and fentanyl sedation. - Daily chest x-rays and ABG to evaluate ET tube placement and oxygenation. - Continue IV Solu-Medrol 40 mg every 6 hours - Scheduled DuoNeb treatments. - Continue Levaquin 750 every 48 hours Qualifiers: Respiratory failure complication: unspecified whether with hypoxia or hypercapnia Qualified Code(s): J96.20 - Acute and chronic respiratory failure , unspecified whether with hypoxia or hypercapnia (2) Acute exacerbation of chronic obstructive airways disease Current Visit: Yes Status: Acute Known history of COPD with home oxygen 2-3 L. Home respiratory inhalers included Spiriva 18 g inhaled daily, Flovent 2 puffs IH twice a day. Admitted with acute on chronic respiratory failure likely COPD exacerbation cannot rule out other causes. Plan: - As described above. (3) Acute on chronic kidney failure Current Visit: Yes Status: Acute Review of previous creatinine levels and GFR is demonstrate baseline creatinine around 1.09, GFR on admission was greater than 60. Likely secondary to tachypnea and hypoxic respiratory failure. Ins and outs demonstrate negative fluid balance. 08/18/2016 patient was seen and examined, labs were reviewed. Patient continues to have worsening of his creatinine and GFR despite starting IV fluid rehydration yesterday. Cumulative fluid balance is +3 L. We will continue to monitor renal function and renal output. 08/19/2016 creatinine slightly improved compared to yesterday, positive fluid balance. IV fluids were discontinued. Patient to receive free water through NG tube with tube feedings. Plan: - Patient is currently intubated. - IV normal saline discontinued - Monitor renal function with an labs - Avoid nephrotoxic medications and renally dose antibiotics. (4) Hyperkalemia, diminished renal excretion Current Visit: Yes Status: Acute Hyperkalemia worsened today compared to yesterday. Suspect secondary to NG tube feedings. I have discussed this with dietary and we have adjusted tube feedings to low potassium. 1000 mg IV calcium gluconate provided with potassium 5.4. Patient has been constipated which is likely not helping his hyperkalemia. Stool softeners have been provided to assist with bowel movements. If no improvement shortly Kayexalate will be provided.. Plan: - Recheck potassium level with a.m. labs. - Avoid potassium sparing antibiotics/medications (5) Hypertension Current Visit: Yes Status: Chronic Patient had elevated blood pressures prior to transfer to the ICU. Blood pressure currently controlled, oral antihypertensives were held. Current blood pressure is 91/55 while patient is intubated on propofol. 08/18/2016 patient's blood pressures continued to be stable, continue to hold antihypertensives. 08/19/2016 patient's blood pressure continues to be appropriate without antihypertensive involvement. Plan: - Hold antihypertensives Qualifiers: Hypertension type: essential hypertension Qualified Code(s): I10 - Essential (primary) hypertension (6) DVT prophylaxis Current Visit: Yes Status: Acute Heparin 5000 units subcutaneous twice a day Subjective Principal diagnosis: acute resp failure, AMS Interval history: Mr. Gregg has been seen about the patient bedside this morning, he remains sedated and intubated requiring mechanical ventilation. CPAP has yet to be attempted today given the patient had difficulty on ventilator this morning are required Ambu bag intervention. No significant events overnight. Objective PUL Vital signs: Last Vital Signs Temp 98.5 F 08/19/16 07:50 Pulse 70 03/01/17 07:00 Resp 14 08/19/16 08:51 BP 110/60 08/19/16 07:00 Pulse Ox 97 08/19/16 08:51 General description: 76-year-old male intubated and sedated on mechanical ventilation HEENT: Normocephalic atraumatic, pupils equal reactive, nasal cavity patent and open. oral mucosa is dry, edentulous, endotracheal tube in place. Neck is supple, trachea midline. secondary muscles with respiratory effort. Thoracic cavity: Chest is symmetric bilateral correlating with respiratory effort, labored breathing, tachypnea, secondary muscle use, poor thoracic expansion. Respiratory: Diffuse diminished bronchovesicular breath sounds with diffuse expiratory wheeze. Cardiac: RRR Bilateral radial pulses were 2+ Abdomen: Distended, nontender to palpation, abdominal wall movement correlating with inspiratory efforts. Extremities are symmetric bilateral, skin is dry with poor skin turgor. Ventilator Settings Ventilator Settings: Ventilator Settings, Last 8 Hours Ventilator Mode VC+ Ventilator Mode VC+ Ventilator Mode VC+ Ventilator Mode VC+ Ventilator Mode VC+ Ventilator Tidal Volume 500 Setting Ventilator Tidal Volume 500 Setting Ventilator Tidal Volume 500 Setting Ventilator Tidal Volume 500 Setting Ventilator Tidal Volume 500 Setting Ventilator Respiratory Rate 12 Setting Ventilator Respiratory Rate 12 Setting Ventilator Respiratory Rate 12 Setting Ventilator Respiratory Rate 12 Setting Ventilator Respiratory Rate 12 Setting Actual Respiratory Rate 12 Actual Respiratory Rate 12 Actual Respiratory Rate 12 Actual Respiratory Rate 12 Positive End Expiratory 5 Pressure Positive End Expiratory 5 Pressure Positive End Expiratory 5 Pressure Positive End Expiratory 5 Pressure Positive End Expiratory 5 Pressure Peak Inspiratory Airway 33 Pressure Peak Inspiratory Airway 32 Pressure Peak Inspiratory Airway 30 Pressure Peak Inspiratory Airway 35 Pressure Results - Laboratory Findings CBC and BMP: 08/19/16 04:00 08/19/16 04:00 ABG ABG pH 7.22 pH Units (7.32-7.45) L 08/19/16 05:20 ABG pCO2 62 mmHg (35-45) H 08/19/16 05:20 ABG pO2 61 mmHg (85-104) L 08/19/16 05:20 ABG O2 Saturation 85 % (95-98) L 08/19/16 05:20 Abnormal lab findings: Abnormal lab results RBC 3.61 M/mcL (4.19-5.50) L 08/19/16 04:00 Hgb 10.3 g/dL (12.9-16.9) L 08/19/16 04:00 Hct 34.9 % (37.5-50.1) L 08/19/16 04:00 MCHC 29.5 g/dL (31.6-35.5) L 08/19/16 04:00 Lymphocytes # 0.2 K/mcL (0.6-4.6) L 08/19/16 04:00 ABG pH 7.22 pH Units (7.32-7.45) L 08/19/16 05:20 ABG pCO2 62 mmHg (35-45) H 08/19/16 05:20 ABG pO2 61 mmHg (85-104) L 08/19/16 05:20 ABG Total CO2 27.3 mEq/L (20-26) H 08/19/16 05:20 ABG O2 Saturation 85 % (95-98) L 08/19/16 05:20 ABG Base Excess -2.8 mEq/L (-2.0 to 3.0) L 08/19/16 05:20 Potassium 5.4 mEq/L (3.5-4.5) H 08/19/16 04:00 Chloride 112 mEq/L (98-109) H 08/19/16 04:00 BUN 71 mg/dL (8-26) H 08/19/16 04:00 Creatinine 1.98 mg/dL (0.72-1.25) H 08/19/16 04:00 Est GFR ( Amer) 40 (> 60) L 08/19/16 04:00 Est GFR (Non-Af Amer) 33 (> 60) L 08/19/16 04:00 BUN/Creatinine Ratio 36 (6-26) H 08/19/16 04:00 Glucose 174 mg/dL (70-99) H 08/19/16 04:00 POC Glucose 146 (58-89) H 08/19/16 07:12 Calculated Osmolality 317 (280-300) H 08/19/16 04:00 Calcium 7.6 mg/dL (8.6-10.8) L 08/19/16 04:00 Alkaline Phosphatase 32 Units/L (38-126) L 08/18/16 04:00 Serum Total Protein 5.9 g/dL (6.0-8.3) L 08/18/16 04:00 Albumin 2.8 g/dL (3.5-5.0) L 08/18/16 04:00 Albumin/Globulin Ratio 0.9 (1.1-2.2) L 08/18/16 04:00 Urine Ketones Trace mg/dL (Negative) H 08/15/16 01:35 Urine Bilirubin Small (Negative) H 08/15/16 01:35 Urine Microscopic RBC 3-5 per hpf (0-3) H 08/15/16 01:35 Ur Squamous Epith Cells Many per lpf (None-Few) H 08/15/16 01:35 - Microbiology Findings Microbiology Findings: Microbiology, Last 48 Hours 08/15/16 16:20 Sputum Culture - Final Sputum - Clinical Findings Intake & Output: Intake & Output 08/18/16 08/19/16 08/19/16 23:59 07:59 15:59 Intake Total 2012 1454 / 1454 Output Total 200 / 200 450 / 450 Balance 1813 / 1813 1004 / 1004 Weight 62.596 kg
[2016-08-19] MEDS: FentaNYL (PF) 1,000 MCG in 0.9 % Sodium Chloride 80 ML IVC SCH ×2 (09:21→20:57)
[2016-08-19] MEDS: Docusate Oral Soln 100 MG/10 ML UDC GTUBE SCH ×2 (09:21→21:18)
[2016-08-19 09:36] LABS: ABG Base Excess -2.5 mEq/L (-2.0 to 3.0); ABG HCO3 25.3 mEQ/L (21-27); ABG Oxygen Saturation 98 % (95-98); ABG PCO2 59 mmHg (35-45); ABG PH 7.24 pH Units (7.32-7.45); ABG PO2 119 mmHg (85-104); ABG TCO2 27.1 mEq/L (20-26)
[2016-08-19 09:37] LABS: Blood Gas FiO2 40 %
[2016-08-19] MEDS ORDERED: Calcium Gluconate 1,000 MG in D5% in Water 100 ML IVPB ONE (10:36)
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
[2016-08-19 14:04] LABS: Ionized Calcium 1.14 mmol/L (1.15-1.35)
[2016-08-19 14:13] LABS: Calcium 7.5 mg/dL (8.6-10.8); Magnesium 2.6 mg/dL (1.6-2.6); Phosphorous 2.1 mg/dL (2.3-4.7); Potassium 5.4 mEq/L (3.5-4.5)
[2016-08-20] MEDS: Ipratropium/Albuterol Neb 3 ML IH SCH ×6 (03:43→23:57)
[2016-08-20] MEDS: Lacri-Lube 3.5 GM TUBE BOTH EYES SCH ×5 (04:34→21:23)
[2016-08-20 04:42] LABS: Hematocrit 34.2 % (37.5-50.1); Hemoglobin 10.3 g/dL (12.9-16.9); Immature Granulocytes % 0.8 % (0-4); Lymphocytes # 0.4 K/mcL (0.6-4.6); Lymphocytes % 5.3 %; Mean Corpuscular HGB Conc 30.1 g/dL (31.6-35.5); Mean Corpuscular Volume 92.9 fL (83.0-100.0); Mean Platelet Volume 10.3 fL (9.4-12.4); Monocytes # 0.4 K/mcL (0.0-1.3); Monocytes % 4.6 %; Neutrophils # 7.4 K/mcL (1.6-8.9); Platelet Count 183 K/mcL (140-400); Red Blood Count 3.68 M/mcL (4.19-5.50); Segmented Neutrophils % 89.3 %
[2016-08-20] MEDS: Insulin LISPRO 300 UNITS/3 ML VIAL SQ SCH ×3 (05:30→17:00)
[2016-08-20] MEDS: LEVOFLOXACIN 750 MG/150 ML IVPB SCH (05:30)
[2016-08-20] MEDS: MethylPREDNISolone 40 MG/ML VIAL IVP SCH ×3 (05:30→17:00)
[2016-08-20 05:50] LABS: ABG Base Excess 1.7 mEq/L (-2.0 to 3.0); ABG HCO3 27.7 mEQ/L (21-27); ABG Oxygen Saturation 97 % (95-98); ABG PCO2 49 mmHg (35-45); ABG PH 7.36 pH Units (7.32-7.45); ABG PO2 89 mmHg (85-104); ABG TCO2 29.2 mEq/L (20-26)
[2016-08-20 05:51] LABS: Blood Gas FiO2 40 %; Blood Gas PEEP 5 cm H2O; Blood Gas Respiration Rate 14; Blood Gas VT 600 cc
[2016-08-20] MEDS: *HR* Heparin 5,000 UNIT/ML VIAL SQ SCH ×5 (06:20→20:26)
[2016-08-20] MEDS: Budesonide/Formoterol 160/4.5 MDI IH SCH ×2 (07:59→20:49)
[2016-08-20] MEDS: Pantoprazole 40 MG VIAL IVP SCH (08:00)
[2016-08-20] MEDS: Chlorhexidine Rinse 15 ML MOUTHWASH MM SCH ×2 (08:01→21:22)
[2016-08-20] MEDS: Docusate Oral Soln 100 MG/10 ML UDC GTUBE SCH ×2 (08:01→21:22)
[2016-08-20] MEDS: amLODIPine 5 MG TABLET PO SCH (08:01)
[2016-08-20] MEDS: Magnesium Oxide 400 MG TABLET PO SCH (08:01)
--- NOTE | 2016-08-20 08:35 | Pulmonology Progress Note ---
<En Diane - Last Filed: 08/20/16 08:32> Date of Encounter: 08/20/16 Time of Encounter: 08:33 Assessment and Plan (1) Acute and chronic respiratory failure Current Visit: Yes Status: Acute Mr. Gregg has known history of COPD with baseline 2-3 L oxygen at home. Presented with COPD exacerbation and acute respiratory failure. Original ABG demonstrated pH 7.17, PCO2 76, PO2 80, bicarbonate 27.7. He required BiPAP. Initially started on Levaquin every 48 hours. By mouth prednisone. 08/17/2016 Examination today demonstrated poor bronchial vesicular breath sounds with diffuse expiratory wheeze. Tachypnea with labored breaths forced inspiratory expiratory ventilation with secondary muscle use. Post intubation ABG demonstrated a pH of 7.25 with a PCO2 of 59 PaO2 of 170 and a bicarbonate of 25.9. 08/18/2016, patient examined today at bedside demonstrated breath stacking on ventilation and required alteration to his ventilatory settings. He failed CPAP trials morning. ABG was 7.25, PCO2 57, PO2 97, bicarbonate 25.0. Plan to repeat ABG this morning. 08/19/2016 patient examined at bedside this morning, demonstrated difficulty while on mechanical ventilation required Ambu bag and readjustment of ventilatory settings. Original ABG 7.22 PCO2 62 PO2 61 bicarbonate 25.4, repeat ABG after vent setting adjustment pH 7.24, PCO2 59, PO2 119, bicarbonate 25.3. Will attempt CPAP trial this afternoon. 08/20/2016 patient examined at bedside this morning, demonstrated difficulty breathing tachycardia with CPAP trial was switched back to mechanical ventilation. ABG demonstrated chronic respiratory acidosis with uncompensated metabolic alkalosis. Plan: - Continue ICU care - Continue mechanical ventilation with propofol and fentanyl sedation. - Daily chest x-rays and ABG to evaluate ET tube placement and oxygenation. - Continue IV Solu-Medrol 40 mg every 6 hours - Scheduled DuoNeb treatments. - Continue Levaquin 750 every 48 hours - Palliative care following with palliative meeting on Wednesday Qualifiers: Respiratory failure complication: unspecified whether with hypoxia or hypercapnia Qualified Code(s): J96.20 - Acute and chronic respiratory failure , unspecified whether with hypoxia or hypercapnia (2) Acute exacerbation of chronic obstructive airways disease Current Visit: Yes Status: Acute Known history of COPD with home oxygen 2-3 L. Home respiratory inhalers included Spiriva 18 g inhaled daily, Flovent 2 puffs IH twice a day. Admitted with acute on chronic respiratory failure likely COPD exacerbation cannot rule out other causes. Plan: - As described above. (3) Acute on chronic kidney failure Current Visit: Yes Status: Acute Review of previous creatinine levels and GFR is demonstrate baseline creatinine around 1.09, GFR on admission was greater than 60. Likely secondary to tachypnea and hypoxic respiratory failure. Ins and outs demonstrate negative fluid balance. 08/18/2016 patient was seen and examined, labs were reviewed. Patient continues to have worsening of his creatinine and GFR despite starting IV fluid rehydration yesterday. Cumulative fluid balance is +3 L. We will continue to monitor renal function and renal output. 08/19/2016 creatinine slightly improved compared to yesterday, positive fluid balance. IV fluids were discontinued. Patient to receive free water through NG tube with tube feedings. 08/20/2016: Creatinine is slightly improving daily. IV fluids have been discontinued. Urine output has improved. Plan: - Patient is currently intubated. - Monitor renal function with an labs - Avoid nephrotoxic medications and renally dose antibiotics. (4) Hyperkalemia, diminished renal excretion Current Visit: Yes Status: Acute Hyperkalemia slightly improved today after changing NG tube feedings. Renal function improving plan to continue monitoring potassium daily. One dose calcium gluconate given yesterday. Plan: - Recheck potassium level with a.m. labs. - Avoid potassium sparing antibiotics/medications (5) Hypertension Current Visit: Yes Status: Chronic Patient had elevated blood pressures prior to transfer to the ICU. Blood pressure currently controlled, oral antihypertensives were held. Current blood pressure is 91/55 while patient is intubated on propofol. 08/18/2016 patient's blood pressures continued to be stable, continue to hold antihypertensives. 08/19/2016 patient's blood pressure continues to be appropriate without antihypertensive involvement. 08/20/2016 patient's blood pressures are stable as morning no need at this time to add antihypertensive. Plan: - Hold antihypertensives Qualifiers: Hypertension type: essential hypertension Qualified Code(s): I10 - Essential (primary) hypertension (6) DVT prophylaxis Current Visit: Yes Status: Acute Heparin 5000 units subcutaneous twice a day Subjective Principal diagnosis: acute resp failure, AMS Interval history: Mr. Gregg has been seen about the patient bedside this morning, he remains sedated and intubated requiring mechanical ventilation. CPAP trial this morning which was not tolerated well and he was placed back on mechanical ventilation. No significant events overnight. to come in on Wednesday afternoon around 13:00 for palliative meeting. Objective PUL Vital signs: Last Vital Signs Temp 98.5 F 08/20/16 08:00 Pulse 80 08/20/16 08:00 Resp 14 08/20/16 08:05 BP 137/100 08/20/16 08:00 Pulse Ox 94 L 08/20/16 08:05 General description: 76-year-old male intubated and sedated on mechanical ventilation Neuro: Does not respond to verbal commands. HEENT: Normocephalic atraumatic, pupils equal reactive, nasal cavity patent and open. oral mucosa is dry, edentulous, endotracheal tube in place. Neck is supple, trachea midline. secondary muscles with respiratory effort. Thoracic cavity: Chest is symmetric bilateral correlating with respiratory effort, labored breathing, tachypnea, secondary muscle use, poor thoracic expansion. Respiratory: Diffuse diminished bronchovesicular breath sounds with diffuse expiratory wheeze, prolonged expiratory efforts. Cardiac: RRR Bilateral radial pulses were 2+ Abdomen: Distended, nontender to palpation, abdominal wall movement correlating with inspiratory efforts. Extremities are symmetric bilateral, skin is dry with poor skin turgor. Ventilator Settings Ventilator Settings: Ventilator Settings, Last 8 Hours Ventilator Mode A/C Ventilator Mode A/C Ventilator Mode CPAP Ventilator Mode CPAP Ventilator Mode A/C Ventilator Mode A/C Ventilator Mode A/C Ventilator Mode A/C Ventilator Tidal Volume 600 Setting Ventilator Tidal Volume 600 Setting Ventilator Tidal Volume 600 Setting Ventilator Tidal Volume 600 Setting Ventilator Tidal Volume 600 Setting Ventilator Tidal Volume 600 Setting Ventilator Respiratory Rate 14 Setting Ventilator Respiratory Rate 14 Setting Ventilator Respiratory Rate 14 Setting Ventilator Respiratory Rate 14 Setting Ventilator Respiratory Rate 14 Setting Ventilator Respiratory Rate 14 Setting Actual Respiratory Rate 14 Actual Respiratory Rate 14 Actual Respiratory Rate 8 Actual Respiratory Rate 7 Actual Respiratory Rate 14 Actual Respiratory Rate 14 Actual Respiratory Rate 14 Positive End Expiratory 5 Pressure Positive End Expiratory 5 Pressure Positive End Expiratory 5 Pressure Positive End Expiratory 5 Pressure Positive End Expiratory 5 Pressure Positive End Expiratory 5 Pressure Positive End Expiratory 5 Pressure Positive End Expiratory 5 Pressure Peak Inspiratory Airway 52 Pressure Peak Inspiratory Airway 37 Pressure Peak Inspiratory Airway 11 Pressure Peak Inspiratory Airway 11 Pressure Peak Inspiratory Airway 26 Pressure Peak Inspiratory Airway 35 Pressure Peak Inspiratory Airway 36 Pressure Results - Laboratory Findings CBC and BMP: 08/20/16 04:00 03/02/17 04:00 ABG ABG pH 7.36 pH Units (7.32-7.45) 08/20/16 05:34 ABG pCO2 49 mmHg (35-45) H 08/20/16 05:34 ABG pO2 89 mmHg (85-104) 08/20/16 05:34 ABG O2 Saturation 97 % (95-98) 08/20/16 05:34 Abnormal lab findings: Abnormal lab results RBC 3.68 M/mcL (4.19-5.50) L 08/20/16 04:00 Hgb 10.3 g/dL (12.9-16.9) L 08/20/16 04:00 Hct 34.2 % (37.5-50.1) L 08/20/16 04:00 MCHC 30.1 g/dL (31.6-35.5) L 08/20/16 04:00 Lymphocytes # 0.4 K/mcL (0.6-4.6) L 08/20/16 04:00 ABG pCO2 49 mmHg (35-45) H 08/20/16 05:34 ABG HCO3 27.7 mEQ/L (21-27) H 08/20/16 05:34 ABG Total CO2 29.2 mEq/L (20-26) H 08/20/16 05:34 Potassium 5.0 mEq/L (3.5-4.5) H 08/20/16 04:00 Chloride 113 mEq/L (98-109) H 08/20/16 04:00 BUN 69 mg/dL (8-26) H 08/20/16 04:00 Creatinine 1.45 mg/dL (0.72-1.25) H 08/20/16 04:00 Est GFR ( Amer) 57 (> 60) L 08/20/16 04:00 Est GFR (Non-Af Amer) 47 (> 60) L 08/20/16 04:00 BUN/Creatinine Ratio 48 (6-26) H 08/20/16 04:00 Glucose 198 mg/dL (70-99) H 08/20/16 04:00 POC Glucose 166 (58-89) H 08/19/16 23:29 Calculated Osmolality 320 (280-300) H 08/20/16 04:00 Calcium 8.0 mg/dL (8.6-10.8) L 08/20/16 04:00 Ionized Calcium 1.14 mmol/L (1.15-1.35) L 08/19/16 13:50 Phosphorus 2.1 mg/dL (2.3-4.7) L 08/19/16 13:50 Alkaline Phosphatase 32 Units/L (38-126) L 08/18/16 04:00 Serum Total Protein 5.9 g/dL (6.0-8.3) L 08/18/16 04:00 Albumin 2.8 g/dL (3.5-5.0) L 08/18/16 04:00 Albumin/Globulin Ratio 0.9 (1.1-2.2) L 08/18/16 04:00 Urine Ketones Trace mg/dL (Negative) H 08/15/16 01:35 Urine Bilirubin Small (Negative) H 08/15/16 01:35 Urine Microscopic RBC 3-5 per hpf (0-3) H 08/15/16 01:35 Ur Squamous Epith Cells Many per lpf (None-Few) H 08/15/16 01:35 - Microbiology Findings Microbiology Findings: Microbiology, Last 48 Hours 08/15/16 16:20 Sputum Culture - Final Sputum - Clinical Findings Intake & Output: Intake & Output 08/19/16 08/20/16 08/20/16 23:59 07:59 15:59 Intake Total 1485 / 1485 786 / 786 Output Total 775 / 775 675 / 675 Balance 710 / 710 111 / 111 Weight 64.5 kg Consult Discharge Plan - Plan Referrals: En Pereira DO [Primary Care Provider] - <Betsy Valle - Last Filed: 08/20/16 15:24> Objective PUL Vital signs: Last Vital Signs Temp 98.5 F 08/20/16 12:00 Pulse 75 08/20/16 14:00 Resp 14 08/20/16 14:00 BP 120/65 08/20/16 14:00 Pulse Ox 96 08/20/16 14:00 Ventilator Settings Ventilator Settings: Ventilator Settings, Last 8 Hours Ventilator Mode A/C Ventilator Mode A/C Ventilator Mode A/C Ventilator Mode A/C Ventilator Mode A/C Ventilator Mode A/C Ventilator Mode A/C Ventilator Mode A/C Ventilator Tidal Volume 600 Setting Ventilator Tidal Volume 600 Setting Ventilator Tidal Volume 600 Setting Ventilator Tidal Volume 600 Setting Ventilator Tidal Volume 600 Setting Ventilator Tidal Volume 600 Setting Ventilator Tidal Volume 600 Setting Ventilator Tidal Volume 600 Setting Ventilator Respiratory Rate 14 Setting Ventilator Respiratory Rate 14 Setting Ventilator Respiratory Rate 14 Setting Ventilator Respiratory Rate 14 Setting Ventilator Respiratory Rate 14 Setting Ventilator Respiratory Rate 14 Setting Ventilator Respiratory Rate 14 Setting Ventilator Respiratory Rate 14 Setting Actual Respiratory Rate 14 Actual Respiratory Rate 14 Actual Respiratory Rate 14 Actual Respiratory Rate 14 Actual Respiratory Rate 14 Actual Respiratory Rate 14 Actual Respiratory Rate 14 Actual Respiratory Rate 14 Positive End Expiratory 5 Pressure Positive End Expiratory 5 Pressure Positive End Expiratory 5 Pressure Positive End Expiratory 5 Pressure Positive End Expiratory 5 Pressure Positive End Expiratory 5 Pressure Positive End Expiratory 5 Pressure Positive End Expiratory 5 Pressure Peak Inspiratory Airway 30 Pressure Peak Inspiratory Airway 30 Pressure Peak Inspiratory Airway 32 Pressure Peak Inspiratory Airway 31 Pressure Peak Inspiratory Airway 42 Pressure Peak Inspiratory Airway 33 Pressure Peak Inspiratory Airway 52 Pressure Peak Inspiratory Airway 37 Pressure Results - Laboratory Findings CBC and BMP: 08/20/16 04:00 08/20/16 04:00 ABG ABG pH 7.36 pH Units (7.32-7.45) 08/20/16 05:34 ABG pCO2 49 mmHg (35-45) H 08/20/16 05:34 ABG pO2 89 mmHg (85-104) 08/20/16 05:34 ABG O2 Saturation 97 % (95-98) 08/20/16 05:34 Abnormal lab findings: Abnormal lab results RBC 3.68 M/mcL (4.19-5.50) L 08/20/16 04:00 Hgb 10.3 g/dL (12.9-16.9) L 08/20/16 04:00 Hct 34.2 % (37.5-50.1) L 08/20/16 04:00 MCHC 30.1 g/dL (31.6-35.5) L 08/20/16 04:00 Lymphocytes # 0.4 K/mcL (0.6-4.6) L 08/20/16 04:00 ABG pCO2 49 mmHg (35-45) H 08/20/16 05:34 ABG HCO3 27.7 mEQ/L (21-27) H 08/20/16 05:34 ABG Total CO2 29.2 mEq/L (20-26) H 08/20/16 05:34 Potassium 5.0 mEq/L (3.5-4.5) H 08/20/16 04:00 Chloride 113 mEq/L (98-109) H 08/20/16 04:00 BUN 69 mg/dL (8-26) H 08/20/16 04:00 Creatinine 1.45 mg/dL (0.72-1.25) H 08/20/16 04:00 Est GFR ( Amer) 57 (> 60) L 08/20/16 04:00 Est GFR (Non-Af Amer) 47 (> 60) L 08/20/16 04:00 BUN/Creatinine Ratio 48 (6-26) H 08/20/16 04:00 Glucose 198 mg/dL (70-99) H 08/20/16 04:00 POC Glucose 164 (58-89) H 08/20/16 10:55 Calculated Osmolality 320 (280-300) H 08/20/16 04:00 Calcium 8.0 mg/dL (8.6-10.8) L 08/20/16 04:00 Ionized Calcium 1.14 mmol/L (1.15-1.35) L 08/19/16 13:50 Phosphorus 2.1 mg/dL (2.3-4.7) L 08/19/16 13:50 Alkaline Phosphatase 32 Units/L (38-126) L 08/18/16 04:00 Serum Total Protein 5.9 g/dL (6.0-8.3) L 08/18/16 04:00 Albumin 2.8 g/dL (3.5-5.0) L 08/18/16 04:00 Albumin/Globulin Ratio 0.9 (1.1-2.2) L 08/18/16 04:00 Urine Ketones Trace mg/dL (Negative) H 08/15/16 01:35 Urine Bilirubin Small (Negative) H 08/15/16 01:35 Urine Microscopic RBC 3-5 per hpf (0-3) H 08/15/16 01:35 Ur Squamous Epith Cells Many per lpf (None-Few) H 08/15/16 01:35 - Clinical Findings Intake & Output: Intake & Output 08/19/16 08/20/16 08/20/16 23:59 07:59 15:59 Intake Total 1485 / 1485 936 / 936 355 / 355 Output Total 775 / 775 675 / 675 150 / 150 Balance 710 / 710 261 / 261 205 / 205 Weight 64.5 kg - Attending Attestation I examined this patient and my medical decision-making was reviewed with the MANAGER BUSINESS INFORMATION/PA/Advanced Practice Nurse/Resident Physician. I agree with the documented findings, disposition and treatment plan as described except to the extent set forth below. Patient seen and examined. Labs, radiology, chart personally reviewed. 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 Will talk to family tomorrow and palliative care follow up. Cardiovascular: stable GI: Nutrition per dietary and GI prophylaxis per routine Heme: DVT prophylaxis per routine ID: Continue antibiotics and plan to de-escalation Renal; urine out put and renal funtion reviewed Endorcine: blood glucose is monitored Lines: all lines checked and no evidence of infections Skin: skin care to prevent pressure ulcers per nursing routine care
[2016-08-20] MEDS: FentaNYL (PF) 1,000 MCG in 0.9 % Sodium Chloride 80 ML IVC SCH ×2 (09:20→17:01)
[2016-08-20] MEDS ORDERED: Milk and Molasses Enema 200 ML RC ONE (11:00)
--- NOTE | 2016-08-20 13:50 | Event Note ---
Date of Encounter: 08/20/16 Time of Encounter: 13:50 Patient remains on vent - did not tolerate CPAP trial this am. No family at bedside. He remains sedated and appears comfortable. is having surgery today at [facility]. Tentative meeting planned for 1300 tomorrow. Will f/u Wednesday.
[2016-08-20] MEDS: niCARdipine 40 MG/200 ML MLS IVC SCH (17:14)
[2016-08-21] MEDS: MethylPREDNISolone 40 MG/ML VIAL IVP SCH ×2 (00:32→06:11)
[2016-08-21] MEDS: Lacri-Lube 3.5 GM TUBE BOTH EYES SCH ×6 (00:32→19:47)
[2016-08-21] MEDS: Insulin LISPRO 300 UNITS/3 ML VIAL SQ SCH ×4 (00:32→18:53)
[2016-08-21] MEDS: niCARdipine 40 MG/200 ML MLS IVC SCH ×2 (00:32→15:21)
[2016-08-21] MEDS: FentaNYL (PF) 1,000 MCG in 0.9 % Sodium Chloride 80 ML IVC SCH ×2 (02:30→15:21)
[2016-08-21] MEDS: Ipratropium/Albuterol Neb 3 ML IH SCH ×5 (04:03→20:15)
[2016-08-21 04:47] LABS: Basophils % 0.1 %; Hematocrit 35.8 % (37.5-50.1); Hemoglobin 10.7 g/dL (12.9-16.9); Immature Granulocytes % 1.6 % (0-4); Lymphocytes # 0.3 K/mcL (0.6-4.6); Lymphocytes % 2.6 %; Mean Corpuscular HGB Conc 29.9 g/dL (31.6-35.5); Mean Corpuscular Hemoglobin 27.6 pg (28.0-33.3); Mean Corpuscular Volume 92.3 fL (83.0-100.0); Mean Platelet Volume 10.2 fL (9.4-12.4); Monocytes # 0.6 K/mcL (0.0-1.3); Monocytes % 5.2 %; Neutrophils # 10.4 K/mcL (1.6-8.9); Platelet Count 193 K/mcL (140-400); Red Blood Count 3.88 M/mcL (4.19-5.50); Segmented Neutrophils % 90.5 %
[2016-08-21 04:49] LABS: BUN/Creatinine Ratio 53 (6-26); Blood Urea Nitrogen 72 mg/dL (8-26); Calcium 8.1 mg/dL (8.6-10.8); Carbon Dioxide 25 mEq/L (19-29); Chloride 111 mEq/L (98-109); Glucose 147 mg/dL (70-99); Osmolality,Calculated 320 (280-300); Potassium 5.3 mEq/L (3.5-4.5); Sodium 143 mEq/L (136-145); eGFR For African Americans > 60 (> 60); eGFR For Non-African Americans 51 (> 60)
[2016-08-21 05:18] LABS: ABG HCO3 30.5 mEQ/L (21-27); ABG Oxygen Saturation 99 % (95-98); ABG PCO2 54 mmHg (35-45); ABG PH 7.36 pH Units (7.32-7.45); ABG PO2 124 mmHg (85-104); ABG TCO2 32.2 mEq/L (20-26)
[2016-08-21 05:19] LABS: Blood Gas FiO2 40 %
[2016-08-21] MEDS: *HR* Heparin 5,000 UNIT/ML VIAL SQ SCH ×2 (06:11→18:14)
[2016-08-21] MEDS: Budesonide/Formoterol 160/4.5 MDI IH SCH ×2 (07:47→20:15)
[2016-08-21] MEDS: Docusate Oral Soln 100 MG/10 ML UDC GTUBE SCH (09:12)
[2016-08-21] MEDS: Magnesium Oxide 400 MG TABLET PO SCH (09:12)
[2016-08-21] MEDS: Pantoprazole 40 MG VIAL IVP SCH (09:12)
[2016-08-21] MEDS: Chlorhexidine Rinse 15 ML MOUTHWASH MM SCH (09:12)
[2016-08-21] MEDS: amLODIPine 5 MG TABLET PO SCH (09:13)
--- NOTE | 2016-08-21 09:49 | Palliative Progress Note ---
Date of Encounter: 08/21/16 Time of Encounter: 09:00 - Assessment and plan (1) Dyspnea Current Visit: Yes Status: Acute Assessment and plan: Patient continues to do poorly with breathing trials. Family desired extubation today. Will add opioids as needed for air hunger/dyspnea after extubation. Qualifiers: Dyspnea type: unspecified Qualified Code(s): R06.00 - Dyspnea, unspecified (2) Goals of care, counseling/discussion Current Visit: Yes Status: Acute Assessment and plan: Meeting with , daughter, sister and niece re: goals of care. Updated on clinical status and failure of CPAP trials. discussed how she noticed pt respiratory status worsening over the last several months. She states that pt would not want to be sustained on life support and would not want trach or termite helper ventilation. Daughter in agreement. They are desiring to withdraw ventilator later today after other family members arrive to visit. They desire to transition to comfort care and are prepared if he does poorly with his breathing after extubation. Updated pt primary nurse and Dr. Valle. If stable after extubation, could transfer to palliative care unit under hospitalist care. (3) Acute and chronic respiratory failure Current Visit: Yes Status: Acute Qualifiers: Respiratory failure complication: unspecified whether with hypoxia or hypercapnia Qualified Code(s): J96.20 - Acute and chronic respiratory failure , unspecified whether with hypoxia or hypercapnia (4) Sepsis Current Visit: Yes Status: Acute Qualifiers: Sepsis type: sepsis due to unspecified organism Qualified Code(s): A41.9 - Sepsis, unspecified organism (5) Acute on chronic kidney failure Current Visit: Yes Status: Acute - Time Spent With Patient Total time spent is greater than 50% in coordination of care (as documented) at patient's floor/unit and/or counseling patient: 25 - 35 minutes - Subjective Interval history: Patient remains sedated on vent. Failed CPAP trial again today with tachypnea, tachycardia and elevated blood pressure. - Constitutional Vitals: Abnormal lab results WBC 11.4 K/mcL (4.3-11.1) H 08/21/16 04:00 RBC 3.88 M/mcL (4.19-5.50) L 08/21/16 04:00 Hgb 10.7 g/dL (12.9-16.9) L 08/21/16 04:00 Hct 35.8 % (37.5-50.1) L 08/21/16 04:00 MCH 27.6 pg (28.0-33.3) L 08/21/16 04:00 MCHC 29.9 g/dL (31.6-35.5) L 08/21/16 04:00 Neutrophils # 10.4 K/mcL (1.6-8.9) H 08/21/16 04:00 Lymphocytes # 0.3 K/mcL (0.6-4.6) L 08/21/16 04:00 ABG pCO2 54 mmHg (35-45) H 08/21/16 04:58 ABG pO2 124 mmHg (85-104) H 08/21/16 04:58 ABG HCO3 30.5 mEQ/L (21-27) H 08/21/16 04:58 ABG Total CO2 32.2 mEq/L (20-26) H 08/21/16 04:58 ABG O2 Saturation 99 % (95-98) H 08/21/16 04:58 ABG Base Excess 4.0 mEq/L (-2.0 to 3.0) H 08/21/16 04:58 Potassium 5.3 mEq/L (3.5-4.5) H 08/21/16 04:00 Chloride 111 mEq/L (98-109) H 08/21/16 04:00 BUN 72 mg/dL (8-26) H 08/21/16 04:00 Creatinine 1.36 mg/dL (0.72-1.25) H 08/21/16 04:00 Est GFR (Non-Af Amer) 51 (> 60) L 08/21/16 04:00 BUN/Creatinine Ratio 53 (6-26) H 08/21/16 04:00 Glucose 147 mg/dL (70-99) H 08/21/16 04:00 POC Glucose 140 (58-89) H 08/21/16 07:22 Calculated Osmolality 320 (280-300) H 08/21/16 04:00 Calcium 8.1 mg/dL (8.6-10.8) L 08/21/16 04:00 Ionized Calcium 1.14 mmol/L (1.15-1.35) L 08/19/16 13:50 Phosphorus 2.1 mg/dL (2.3-4.7) L 08/19/16 13:50 Alkaline Phosphatase 32 Units/L (38-126) L 08/18/16 04:00 Serum Total Protein 5.9 g/dL (6.0-8.3) L 08/18/16 04:00 Albumin 2.8 g/dL (3.5-5.0) L 08/18/16 04:00 Albumin/Globulin Ratio 0.9 (1.1-2.2) L 08/18/16 04:00 Urine Ketones Trace mg/dL (Negative) H 08/15/16 01:35 Urine Bilirubin Small (Negative) H 08/15/16 01:35 Urine Microscopic RBC 3-5 per hpf (0-3) H 08/15/16 01:35 Ur Squamous Epith Cells Many per lpf (None-Few) H 08/15/16 01:35 General appearance: Present: no acute distress - Respiratory Additional comments: Breath sound course throughout. Remains on vent - Fio2 40%, PEEP 5. - Cardiovascular Cardiovascular exam: Present: +S1, +S2 - GI/Abdominal GI/Abdominal exam: Present: distended, normal bowel sounds - Additional comments: Clear yellow urine - Extremities Exam Extremities exam: Present: normal capillary refill, normal inspection - Neurological Exam Additional comments: Sedated on vent - Skin Skin exam: Present: dry, pallor, warm Palliative Quality Palliative Quality: Screen for Code Status: NA (on vent), Screen for Goals of Care: NA, Screen for Pain: NA, If Pain Regimen Started, Initiate Bowel Regimen: NA, Screen for Nausea/Vomitting: NA - Labs CBC & Chem 7: 08/21/16 04:00 08/21/16 04:00 Labs: Laboratory Results - last 24 hr 08/20/16 08/20/16 08/21/16 10:55 16:52 00:04 WBC RBC Hgb Hct MCV MCH MCHC RDW Plt Count MPV Immature Gran % Seg Neutrophils % Lymphocytes % Monocytes % Eosinophils % Basophils % Neutrophils # Lymphocytes # Monocytes # Eosinophils # Basophils # ABG pH ABG pCO2 ABG pO2 ABG HCO3 ABG Total CO2 ABG O2 Saturation ABG Base Excess Blood Gas Modality Inspired O2 Sodium Potassium Chloride Carbon Dioxide BUN Creatinine Est GFR ( Amer) Est GFR (Non-Af Amer) BUN/Creatinine Ratio Glucose POC Glucose 164 H 181 H 177 H Calculated Osmolality Calcium 08/21/16 08/21/16 08/21/16 04:00 04:00 04:58 WBC 11.4 H RBC 3.88 L Hgb 10.7 L Hct 35.8 L MCV 92.3 MCH 27.6 L MCHC 29.9 L RDW 14.0 Plt Count 193 MPV 10.2 Immature Gran % 1.6 Seg Neutrophils % 90.5 Lymphocytes % 2.6 Monocytes % 5.2 Eosinophils % 0.0 Basophils % 0.1 Neutrophils # 10.4 H Lymphocytes # 0.3 L Monocytes # 0.6 Eosinophils # 0.0 Basophils # 0.0 ABG pH 7.36 ABG pCO2 54 H ABG pO2 124 H ABG HCO3 30.5 H ABG Total CO2 32.2 H ABG O2 Saturation 99 H ABG Base Excess 4.0 H Blood Gas Modality ASSIST CONTROL Inspired O2 40 Sodium 143 Potassium 5.3 H Chloride 111 H Carbon Dioxide 25 BUN 72 H Creatinine 1.36 H Est GFR ( Amer) > 60 Est GFR (Non-Af Amer) 51 L BUN/Creatinine Ratio 53 H Glucose 147 H POC Glucose Calculated Osmolality 320 H Calcium 8.1 L 08/21/16 08/21/16 06:10 07:22 WBC RBC Hgb Hct MCV MCH MCHC RDW Plt Count MPV Immature Gran % Seg Neutrophils % Lymphocytes % Monocytes % Eosinophils % Basophils % Neutrophils # Lymphocytes # Monocytes # Eosinophils # Basophils # ABG pH ABG pCO2 ABG pO2 ABG HCO3 ABG Total CO2 ABG O2 Saturation ABG Base Excess Blood Gas Modality Inspired O2 Sodium Potassium Chloride Carbon Dioxide BUN Creatinine Est GFR ( Amer) Est GFR (Non-Af Amer) BUN/Creatinine Ratio Glucose POC Glucose 141 H 140 H Calculated Osmolality Calcium - Impressions Impressions Chest X-Ray 08/21/16 04:00 IMPRESSION: Improved aeration of the lungs. No focal consolidation D/ / Link Walker MD / Link Walker MD Interpreting Provider: Link Walker MD - ABG Interpretation ABG results: ABG ABG pH 7.36 pH Units (7.32-7.45) 08/21/16 04:58 ABG pCO2 54 mmHg (35-45) H 08/21/16 04:58 ABG pO2 124 mmHg (85-104) H 08/21/16 04:58 ABG O2 Saturation 99 % (95-98) H 08/21/16 04:58 Consult Discharge Plan - Plan Referrals: En Pereira DO [Primary Care Provider] -
[2016-08-21] MEDS ORDERED: MethylPREDNISolone 40 MG/ML VIAL IVP SCH (10:52)
--- NOTE | 2016-08-21 12:03 | Pulmonology Progress Note ---
<En Diane Kimani - Last Filed: 08/21/16 12:00> Date of Encounter: 08/21/16 Time of Encounter: 12:01 Assessment and Plan (1) Acute and chronic respiratory failure Current Visit: Yes Status: Acute Mr. Gregg has known history of COPD with baseline 2-3 L oxygen at home. Presented with COPD exacerbation and acute respiratory failure. Original ABG demonstrated pH 7.17, PCO2 76, PO2 80, bicarbonate 27.7. He required BiPAP. Initially started on Levaquin every 48 hours. By mouth prednisone. 08/17/2016 Examination today demonstrated poor bronchial vesicular breath sounds with diffuse expiratory wheeze. Tachypnea with labored breaths forced inspiratory expiratory ventilation with secondary muscle use. Post intubation ABG demonstrated a pH of 7.25 with a PCO2 of 59 PaO2 of 170 and a bicarbonate of 25.9. 08/18/2016, patient examined today at bedside demonstrated breath stacking on ventilation and required alteration to his ventilatory settings. He failed CPAP trials morning. ABG was 7.25, PCO2 57, PO2 97, bicarbonate 25.0. Plan to repeat ABG this morning. 08/19/2016 patient examined at bedside this morning, demonstrated difficulty while on mechanical ventilation required Ambu bag and readjustment of ventilatory settings. Original ABG 7.22 PCO2 62 PO2 61 bicarbonate 25.4, repeat ABG after vent setting adjustment pH 7.24, PCO2 59, PO2 119, bicarbonate 25.3. Will attempt CPAP trial this afternoon. 08/20/2016 patient examined at bedside this morning, demonstrated difficulty breathing tachycardia with CPAP trial was switched back to mechanical ventilation. ABG demonstrated chronic respiratory acidosis with uncompensated metabolic alkalosis. 08/21/2016 Patient seen and examined at bedside. Continues to show little to no progression towards a successful extubation. ABG 7.36, PCO2 54, [id number], bicarb 30.5. Will increase Solu-medrol to 60mg IV Q6Hrs. Plan: - Continue ICU care - Continue mechanical ventilation with propofol and fentanyl sedation. - Daily chest x-rays and ABG to evaluate ET tube placement and oxygenation. - Continue IV Solu-Medrol 60 mg every 6 hours - Scheduled DuoNeb treatments. - Continue Levaquin 750 every 48 hours - Palliative care following with palliative meeting today. Qualifiers: Respiratory failure complication: unspecified whether with hypoxia or hypercapnia Qualified Code(s): J96.20 - Acute and chronic respiratory failure , unspecified whether with hypoxia or hypercapnia (2) Acute exacerbation of chronic obstructive airways disease Current Visit: Yes Status: Acute Known history of COPD with home oxygen 2-3 L. Home respiratory inhalers included Spiriva 18 g inhaled daily, Flovent 2 puffs IH twice a day. Admitted with acute on chronic respiratory failure likely COPD exacerbation cannot rule out other causes. Plan: - As described above. (3) Acute on chronic kidney failure Current Visit: Yes Status: Acute Review of previous creatinine levels and GFR is demonstrate baseline creatinine around 1.09, GFR on admission was greater than 60. Likely secondary to tachypnea and hypoxic respiratory failure. Ins and outs demonstrate negative fluid balance. 08/18/2016 patient was seen and examined, labs were reviewed. Patient continues to have worsening of his creatinine and GFR despite starting IV fluid rehydration yesterday. Cumulative fluid balance is +3 L. We will continue to monitor renal function and renal output. 08/19/2016 creatinine slightly improved compared to yesterday, positive fluid balance. IV fluids were discontinued. Patient to receive free water through NG tube with tube feedings. 08/20/2016: Creatinine is slightly improving daily. IV fluids have been discontinued. Urine output has improved. 08/21/2016 Creatinine slowly improving. 1.36 today with baseline around 1.09. Continues to have hyperkalemia at 5.3 from 5.0. He continues to receive NG tube feeding with free water. medications reviewed. Plan: - Patient is currently intubated. - Monitor renal function with an labs - Avoid nephrotoxic medications and renally dose antibiotics. (4) Hyperkalemia, diminished renal excretion Current Visit: Yes Status: Acute Hyperkalemia continues. Medications reviewed. potassium 5.3 from 5.0 yesterday. cause likely renal and constipation. No success with bowel regiment. Continue to monitor function. Plan: - Recheck potassium level with a.m. labs. - Avoid potassium sparing antibiotics/medications (5) Hypertension Current Visit: Yes Status: Chronic Patient had elevated blood pressures prior to transfer to the ICU. Blood pressure currently controlled, oral antihypertensives were held. Current blood pressure is 91/55 while patient is intubated on propofol. 08/18/2016 patient's blood pressures continued to be stable, continue to hold antihypertensives. 08/19/2016 patient's blood pressure continues to be appropriate without antihypertensive involvement. 08/20/2016 patient's blood pressures are stable as morning no need at this time to add antihypertensive. 08/21/2016 patient's blood pressures are stable as morning no need at this time to add antihypertensive. Plan: - Hold antihypertensives Qualifiers: Hypertension type: essential hypertension Qualified Code(s): I10 - Essential (primary) hypertension (6) DVT prophylaxis Current Visit: Yes Status: Acute Heparin 5000 units subcutaneous twice a day Subjective Principal diagnosis: acute resp failure, AMS Interval history: Mr. Gregg has been seen about the patient bedside this morning, he remains sedated and intubated requiring mechanical ventilation. He failed CPAP trial this am. His breathing is less labored today. He has had very little progression in his medical state. Family is at bedside. They are planning on a palliative care meeting today around 1300. At this time they had no further questions. Objective PUL Vital signs: Last Vital Signs Temp 98.3 F 08/21/16 11:51 Pulse 85 08/21/16 11:29 Resp 14 08/21/16 11:06 BP 137/72 08/21/16 11:06 Pulse Ox 100 08/21/16 11:06 General description: 76-year-old male intubated and sedated on mechanical ventilation Neuro: Does not respond to verbal commands. HEENT: Normocephalic atraumatic, pupils equal reactive, nasal cavity patent and open. oral mucosa is dry, edentulous, endotracheal tube in place. Neck is supple, trachea midline. secondary muscles with respiratory effort. Thoracic cavity: Chest is symmetric bilateral correlating with respiratory effort, labored breathing, tachypnea, secondary muscle use, poor thoracic expansion. Respiratory: Diffuse diminished bronchovesicular breath sounds with diffuse expiratory wheeze, prolonged expiratory efforts. Cardiac: RRR Bilateral radial pulses were 2+ Abdomen: Distended, nontender to palpation, abdominal wall fasiculations today. soft to palpation. Extremities are symmetric bilateral, skin is dry. Ventilator Settings Ventilator Settings: Ventilator Settings, Last 8 Hours Ventilator Mode A/C Ventilator Mode A/C Ventilator Mode A/C Ventilator Mode A/C Ventilator Mode A/C Ventilator Mode A/C Ventilator Mode A/C Ventilator Mode A/C Ventilator Mode A/C Ventilator Tidal Volume 600 Setting Ventilator Tidal Volume 600 Setting Ventilator Tidal Volume 600 Setting Ventilator Tidal Volume 600 Setting Ventilator Tidal Volume 600 Setting Ventilator Tidal Volume 600 Setting Ventilator Tidal Volume 600 Setting Ventilator Tidal Volume 600 Setting Ventilator Tidal Volume 600 Setting Ventilator Respiratory Rate 14 Setting Ventilator Respiratory Rate 14 Setting Ventilator Respiratory Rate 14 Setting Ventilator Respiratory Rate 14 Setting Ventilator Respiratory Rate 14 Setting Ventilator Respiratory Rate 14 Setting Ventilator Respiratory Rate 14 Setting Ventilator Respiratory Rate 14 Setting Ventilator Respiratory Rate 14 Setting Actual Respiratory Rate 14 Actual Respiratory Rate 14 Actual Respiratory Rate 16 Actual Respiratory Rate 16 Actual Respiratory Rate 18 Actual Respiratory Rate 18 Actual Respiratory Rate 14 Actual Respiratory Rate 14 Positive End Expiratory 5 Pressure Positive End Expiratory 5 Pressure Positive End Expiratory 5 Pressure Positive End Expiratory 5 Pressure Positive End Expiratory 5 Pressure Positive End Expiratory 5 Pressure Positive End Expiratory 5 Pressure Positive End Expiratory 5 Pressure Positive End Expiratory 5 Pressure Peak Inspiratory Airway 34 Pressure Peak Inspiratory Airway 34 Pressure Peak Inspiratory Airway 39 Pressure Peak Inspiratory Airway 39 Pressure Peak Inspiratory Airway 37 Pressure Peak Inspiratory Airway 41 Pressure Results - Laboratory Findings CBC and BMP: 08/21/16 04:00 08/21/16 04:00 ABG ABG pH 7.36 pH Units (7.32-7.45) 08/21/16 04:58 ABG pCO2 54 mmHg (35-45) H 08/21/16 04:58 ABG pO2 124 mmHg (85-104) H 08/21/16 04:58 ABG O2 Saturation 99 % (95-98) H 08/21/16 04:58 Abnormal lab findings: Abnormal lab results WBC 11.4 K/mcL (4.3-11.1) H 08/21/16 04:00 RBC 3.88 M/mcL (4.19-5.50) L 08/21/16 04:00 Hgb 10.7 g/dL (12.9-16.9) L 08/21/16 04:00 Hct 35.8 % (37.5-50.1) L 08/21/16 04:00 MCH 27.6 pg (28.0-33.3) L 08/21/16 04:00 MCHC 29.9 g/dL (31.6-35.5) L 08/21/16 04:00 Neutrophils # 10.4 K/mcL (1.6-8.9) H 08/21/16 04:00 Lymphocytes # 0.3 K/mcL (0.6-4.6) L 08/21/16 04:00 ABG pCO2 54 mmHg (35-45) H 08/21/16 04:58 ABG pO2 124 mmHg (85-104) H 08/21/16 04:58 ABG HCO3 30.5 mEQ/L (21-27) H 08/21/16 04:58 ABG Total CO2 32.2 mEq/L (20-26) H 08/21/16 04:58 ABG O2 Saturation 99 % (95-98) H 08/21/16 04:58 ABG Base Excess 4.0 mEq/L (-2.0 to 3.0) H 08/21/16 04:58 Potassium 5.3 mEq/L (3.5-4.5) H 08/21/16 04:00 Chloride 111 mEq/L (98-109) H 08/21/16 04:00 BUN 72 mg/dL (8-26) H 08/21/16 04:00 Creatinine 1.36 mg/dL (0.72-1.25) H 08/21/16 04:00 Est GFR (Non-Af Amer) 51 (> 60) L 08/21/16 04:00 BUN/Creatinine Ratio 53 (6-26) H 08/21/16 04:00 Glucose 147 mg/dL (70-99) H 08/21/16 04:00 POC Glucose 192 (58-89) H 08/21/16 11:49 Calculated Osmolality 320 (280-300) H 08/21/16 04:00 Calcium 8.1 mg/dL (8.6-10.8) L 08/21/16 04:00 Ionized Calcium 1.14 mmol/L (1.15-1.35) L 08/19/16 13:50 Phosphorus 2.1 mg/dL (2.3-4.7) L 08/19/16 13:50 Alkaline Phosphatase 32 Units/L (38-126) L 08/18/16 04:00 Serum Total Protein 5.9 g/dL (6.0-8.3) L 08/18/16 04:00 Albumin 2.8 g/dL (3.5-5.0) L 08/18/16 04:00 Albumin/Globulin Ratio 0.9 (1.1-2.2) L 08/18/16 04:00 Urine Ketones Trace mg/dL (Negative) H 08/15/16 01:35 Urine Bilirubin Small (Negative) H 08/15/16 01:35 Urine Microscopic RBC 3-5 per hpf (0-3) H 08/15/16 01:35 Ur Squamous Epith Cells Many per lpf (None-Few) H 08/15/16 01:35 - Clinical Findings Intake & Output: Intake & Output 08/20/16 08/21/16 08/21/16 23:59 07:59 15:59 Intake Total 450 / 450 798 / 798 Output Total 625 / 625 400 / 400 650 / 650 Balance -175 / -175 398 / 398 -650 / -650 Weight 64.5 kg Consult Discharge Plan - Plan Referrals: En Pereira DO [Primary Care Provider] - <Betsy Valle - Last Filed: 08/21/16 13:07> Objective PUL Vital signs: Last Vital Signs Temp 98.3 F 08/21/16 11:51 Pulse 79 08/21/16 12:00 Resp 14 08/21/16 12:00 BP 127/66 08/21/16 12:00 Pulse Ox 100 08/21/16 12:00 Ventilator Settings Ventilator Settings: Ventilator Settings, Last 8 Hours Ventilator Mode A/C Ventilator Mode A/C Ventilator Mode A/C Ventilator Mode A/C Ventilator Mode A/C Ventilator Mode A/C Ventilator Mode A/C Ventilator Mode A/C Ventilator Mode A/C Ventilator Tidal Volume 600 Setting Ventilator Tidal Volume 600 Setting Ventilator Tidal Volume 600 Setting Ventilator Tidal Volume 600 Setting Ventilator Tidal Volume 600 Setting Ventilator Tidal Volume 600 Setting Ventilator Tidal Volume 600 Setting Ventilator Tidal Volume 600 Setting Ventilator Tidal Volume 600 Setting Ventilator Respiratory Rate 14 Setting Ventilator Respiratory Rate 14 Setting Ventilator Respiratory Rate 14 Setting Ventilator Respiratory Rate 14 Setting Ventilator Respiratory Rate 14 Setting Ventilator Respiratory Rate 14 Setting Ventilator Respiratory Rate 14 Setting Ventilator Respiratory Rate 14 Setting Ventilator Respiratory Rate 14 Setting Actual Respiratory Rate 17 Actual Respiratory Rate 14 Actual Respiratory Rate 14 Actual Respiratory Rate 16 Actual Respiratory Rate 16 Actual Respiratory Rate 18 Actual Respiratory Rate 18 Actual Respiratory Rate 14 Positive End Expiratory 5 Pressure Positive End Expiratory 5 Pressure Positive End Expiratory 5 Pressure Positive End Expiratory 5 Pressure Positive End Expiratory 5 Pressure Positive End Expiratory 5 Pressure Positive End Expiratory 5 Pressure Positive End Expiratory 5 Pressure Positive End Expiratory 5 Pressure Peak Inspiratory Airway 34 Pressure Peak Inspiratory Airway 34 Pressure Peak Inspiratory Airway 39 Pressure Peak Inspiratory Airway 39 Pressure Peak Inspiratory Airway 37 Pressure Results - Laboratory Findings CBC and BMP: 08/21/16 04:00 03/03/17 04:00 ABG ABG pH 7.36 pH Units (7.32-7.45) 08/21/16 04:58 ABG pCO2 54 mmHg (35-45) H 08/21/16 04:58 ABG pO2 124 mmHg (85-104) H 08/21/16 04:58 ABG O2 Saturation 99 % (95-98) H 08/21/16 04:58 Abnormal lab findings: Abnormal lab results WBC 11.4 K/mcL (4.3-11.1) H 08/21/16 04:00 RBC 3.88 M/mcL (4.19-5.50) L 08/21/16 04:00 Hgb 10.7 g/dL (12.9-16.9) L 08/21/16 04:00 Hct 35.8 % (37.5-50.1) L 08/21/16 04:00 MCH 27.6 pg (28.0-33.3) L 08/21/16 04:00 MCHC 29.9 g/dL (31.6-35.5) L 08/21/16 04:00 Neutrophils # 10.4 K/mcL (1.6-8.9) H 08/21/16 04:00 Lymphocytes # 0.3 K/mcL (0.6-4.6) L 08/21/16 04:00 ABG pCO2 54 mmHg (35-45) H 08/21/16 04:58 ABG pO2 124 mmHg (85-104) H 08/21/16 04:58 ABG HCO3 30.5 mEQ/L (21-27) H 08/21/16 04:58 ABG Total CO2 32.2 mEq/L (20-26) H 08/21/16 04:58 ABG O2 Saturation 99 % (95-98) H 08/21/16 04:58 ABG Base Excess 4.0 mEq/L (-2.0 to 3.0) H 08/21/16 04:58 Potassium 5.3 mEq/L (3.5-4.5) H 08/21/16 04:00 Chloride 111 mEq/L (98-109) H 08/21/16 04:00 BUN 72 mg/dL (8-26) H 08/21/16 04:00 Creatinine 1.36 mg/dL (0.72-1.25) H 08/21/16 04:00 Est GFR (Non-Af Amer) 51 (> 60) L 08/21/16 04:00 BUN/Creatinine Ratio 53 (6-26) H 08/21/16 04:00 Glucose 147 mg/dL (70-99) H 08/21/16 04:00 POC Glucose 192 (58-89) H 08/21/16 11:49 Calculated Osmolality 320 (280-300) H 08/21/16 04:00 Calcium 8.1 mg/dL (8.6-10.8) L 08/21/16 04:00 Ionized Calcium 1.14 mmol/L (1.15-1.35) L 08/19/16 13:50 Phosphorus 2.1 mg/dL (2.3-4.7) L 08/19/16 13:50 Alkaline Phosphatase 32 Units/L (38-126) L 08/18/16 04:00 Serum Total Protein 5.9 g/dL (6.0-8.3) L 08/18/16 04:00 Albumin 2.8 g/dL (3.5-5.0) L 08/18/16 04:00 Albumin/Globulin Ratio 0.9 (1.1-2.2) L 08/18/16 04:00 Urine Ketones Trace mg/dL (Negative) H 08/15/16 01:35 Urine Bilirubin Small (Negative) H 08/15/16 01:35 Urine Microscopic RBC 3-5 per hpf (0-3) H 08/15/16 01:35 Ur Squamous Epith Cells Many per lpf (None-Few) H 08/15/16 01:35 - Clinical Findings Intake & Output: Intake & Output 08/20/16 08/21/16 08/21/16 23:59 07:59 15:59 Intake Total 450 / 450 798 / 798 Output Total 625 / 625 400 / 400 650 / 650 Balance -175 / -175 398 / 398 -650 / -650 Weight 64.5 kg - Attending Attestation I examined this patient and my medical decision-making was reviewed with the STAFF WEAPONS OFFICER/PA/Advanced Practice Nurse/Resident Physician. I agree with the documented findings, disposition and treatment plan as described except to the extent set forth below. Patient seen and examined. Labs, radiology, chart personally reviewed. Agree with resident's history and physical, assessment, plan with following comments: RETAINING ROOM CUTTER: Patient doesn't follows commands and it could be encephalopathy, which is multifactorial, Pulmonary: Patient still have PEEPi when he is more awake for SBT and that becomes challenging. Changed to pressure support for more comfort, but he could not complete trial. Will increase systemic steroid and hopefully it will help, but still prognosis is poor and will wait for the family to discuss the next step, which may include tracheostomy. Cardiovascular: hypertension mainly due to SBT. GI: Nutrition per dietary and GI prophylaxis per routine Heme: DVT prophylaxis per routine ID: Continue antibiotics and plan to de-escalation Renal; urine out put and renal funtion reviewed Endorcine: blood glucose is monitored Lines: all lines checked and no evidence of infections Skin: skin care to prevent pressure ulcers per nursing routine care I spent 35 min of Critical Care time with this patient. It involved decision making of high complexity to assess, manipulate, and support vital organ system failure and/or to prevent further life threatening deterioration of the patient' s condition. The time involved in the performance of separately reportable procedures was not counted toward critical care time.
[2016-08-21] MEDS ORDERED: *HR* Morphine 2 MG/ML SYRINGE IVP PRN (13:56)
[2016-08-21] MEDS ORDERED: *HR* LORazepam 2 MG/ML VIAL IVP PRN (14:00)
[2016-08-21] MEDS: *HR* LORazepam 2 MG/ML VIAL IVP PRN (17:23)
[2016-08-21] MEDS ORDERED: *HR* Morphine 2 MG/ML SYRINGE ONE (17:57)
[2016-08-21 17:58] VITALS: BP 184/101
[2016-08-21] MEDS ORDERED: Scopolamine Patch 1.5 MG PATCH.TD72 TD ONE (18:05)
[2016-08-21] MEDS ORDERED: Atropine Sulfate 1% 40 DROP/2 ML BOTTLE SL PRN (18:06)
[2016-08-21] MEDS: *HR* Morphine 2 MG/ML SYRINGE IVP PRN ×6 (18:39→23:34)
[2016-08-22] MEDS: Ipratropium/Albuterol Neb 3 ML IH SCH ×3 (00:03→07:32)
[2016-08-22] MEDS: Lacri-Lube 3.5 GM TUBE BOTH EYES SCH ×3 (00:04→08:29)
[2016-08-22] MEDS: *HR* LORazepam 2 MG/ML VIAL IVP PRN (00:06)
[2016-08-22] MEDS: *HR* Morphine 2 MG/ML SYRINGE IVP PRN ×7 (01:16→07:44)
[2016-08-22] MEDS ORDERED: *HR* Morphine 30 MG/ 30 ML PCA IVC PRN (07:26)
[2016-08-22] MEDS: Budesonide/Formoterol 160/4.5 MDI IH SCH (07:32)
[2016-08-22] MEDS ORDERED: 0.9 % Sodium Chloride 1,000 ML ONE (07:58)
[2016-08-22] MEDS ORDERED: Scopolamine Patch 1.5 MG PATCH.TD72 TD SCH (08:00)
--- NOTE | 2016-08-22 08:00 | Discharge Summary ---
<Kolton Briseno - Last Filed: 08/22/16 15:11> Date of Encounter: 08/22/16 Time of Encounter: 08:00 - Discharge Diagnosis (1) Acute and chronic respiratory failure Priority: Primary Status: Acute Comments: sepsis, possibly secondary to viral respiratory infection. Qualifiers: Respiratory failure complication: unspecified whether with hypoxia or hypercapnia Qualified Code(s): J96.20 - Acute and chronic respiratory failure , unspecified whether with hypoxia or hypercapnia (2) Dyspnea Priority: Secondary Status: Acute Qualifiers: Dyspnea type: unspecified Qualified Code(s): R06.00 - Dyspnea, unspecified (3) Goals of care, counseling/discussion Priority: Secondary Status: Acute (4) Sepsis Priority: Secondary Status: Acute Qualifiers: Sepsis type: sepsis due to unspecified organism Qualified Code(s): A41.9 - Sepsis, unspecified organism (5) Acute on chronic kidney failure Priority: Secondary Status: Acute (6) Acute exacerbation of chronic obstructive airways disease Priority: Secondary Status: Acute (7) Hyperkalemia, diminished renal excretion Priority: Secondary Status: Acute (8) Hypertension Priority: Secondary Status: Chronic Qualifiers: Hypertension type: essential hypertension Qualified Code(s): I10 - Essential (primary) hypertension (9) DVT prophylaxis Priority: Secondary Status: Acute - Discharge Medications Home Medications: Citalopram Hydrobromide [Celexa] 40 mg PO DAILY 08/15/16 [History] Donepezil HCl [Aricept] 5 mg PO HS 08/15/16 [History] Fluticasone Propionate [Flovent Hfa] 2 puff IH BID 08/15/16 [History] Naproxen [Naprosyn] 500 mg PO BID 08/15/16 [History] Omeprazole 20 mg PO DAILY 08/15/16 [History] Oxycodone HCl/Acetaminophen [Percocet 5-325 mg Tablet] 1 tab PO 5XD PRN [History] Tiotropium [Spiriva] 18 mcg IH DAILY 08/15/16 [History] Budesonide/Formoterol 160/4.5 [Symbicort 160/4.5] 1 puff IH BIDR inhaler [Rx] Ipratropium/Albuterol Neb [Duoneb] 3 ml IH [id number] inhsol 08/22/16 [Rx] LORazepam [Ativan] 1 mg IVP Q2HR PRN #0 vial 08/22/16 [Rx] LORazepam [Ativan] 2 mg IVP Q4HR PRN #0 vial 08/22/16 [Rx] Lacri-Lube [Lacri-lube] 1 appl BOTH EYES Q2HR PRN #0 tube 08/22/16 [Rx] Lacri-Lube [Lacri-lube] 1 appl BOTH EYES Q4HR tube 08/22/16 [Rx] Morphine [Morphine Sulfate] 4 mg IVP Q30MIN PRN #0 syringe 08/22/16 [Rx] Naloxone [Narcan] 0.4 mg IVP Q2MIN PRN #0 inj 08/22/16 [Rx] Ondansetron ODT [Zofran ODT] 4 mg SL Q8HR PRN #0 tab.rapdis 08/22/16 [Rx] Scopolamine Patch [Transderm-Scop] 1.5 mg TD Q72H patch.td72 08/22/16 [Rx] Allergies/Adverse Reactions: Allergies No Known Allergies Allergy (Verified 08/14/16 22:18) Date of admission: 08/15/16 05:09 Primary care physician: Ashley Tolentino Consults: 08/16/16 18:17 Consult to Speech Therapy [CONS] Routine Comment: Evaluate, develop and implement POC Reason for Consult: risk for aspiration Call Completed: No 08/16/16 18:22 Consult to Pulmonology [CONS] Routine Consulting Provider: [facility] [place] Reason for Consult: Acute hypercapneic respiraory failure Call Completed: No 08/17/16 13:45 consult to posting machine operator [Consult to Nutrition] [CONS] Routine Comment: Consulting Provider: NUTRITION Reason for Dietary Consult: Supplemental Nutrition 08/19/16 11:36 Consult to Palliative Care [CONS] Routine Comment: Consulting Provider: [facility] [place] - Patient Status Disposition: Hospice - Medical Facility Condition: Critical Functional capacity at discharge: bed bound Overall status at discharge: patient is not back to baseline - Discharge Instructions Follow Up With: En Pereira DO [Primary Care Provider] - Additional Instructions: Management will be per palliative care team. - Diet and Activity Activity: other (patient being discharged to palliative care. ) Diet: advance to your usual diet Hospital course: Mr. Gregg is a 76 year old male with PMHx of arthritis, COPD (on 2L home oxygen). Patient was admitted to [facility] on 08/15/16 with CC of shortness of breath that had progressively been worsening. He also complained of increased cough with sputum production, subjective fever, increased weakness, and poor appetite. Patient was febrile and tachycardic upon initial evalutation. He was subsequently admitted to the hospital with sepsis and acute on chronic respiratory failure. CXR revealed no obvious consolidation. He was started on atibiotics. On day 2 of his hospital stay, his respiratory status continued to decline, further requiring BiPAP. Patient was subsequently transferred to the ICU. ABG showed respiratory acidosis, patient was also in hypertensive urgency as well. Patient was intubated and placed on ventilator. Patient continue to decline failed weaning parameters for removal from mechanical ventilation. Patient's initial code status was full despite poor prognosis. Palliative care team was involved in patient's care. After continued discussions with family members, patient's code status was changed to DNR CC. Per family members, patient did not wish to be on sustained life support. Patient was taken off ventilator and maintained in a state of comfort. Patient will be discharged from Internal Medicine service and admitted to Palliative care service. Plan: continued comfort care measures per palliative care team. Time spent discussing smoking cessation with patient: more than 10 minutes - Time Spent with Patient Total time spent providing and/or coordinating discharge services: Greater than 30 minutes (40 minutes) - Constitutional Vitals: Temp Pulse Resp BP Pulse Ox 98.7 F 79 12 184/101 98 08/21/16 16:15 08/21/16 15:32 08/21/16 17:00 08/21/16 17:00 08/21/16 17:00 General appearance: Present: no acute distress Exam: patient is resting comfortably in bed. No signs of obvious distress. He is on high flow oxygen, Patient has a significant amount of respiratory secretions. Family is in the room with the patient. - Head Head exam: Present: atraumatic, normocephalic - Eye Additional comments: eyes are closed, as patient is resting comfortably. - Neck Neck exam general surgery: Present: supple, trachea midline - Respiratory Respiratory exam: Present: rhonchi, wheezes Additional comments: significant amount of respiratory secretions present. - Cardiovascular Cardiovascular exam: Present: distant heart sounds - GI/Abdominal GI/Abdominal exam: Present: distended Additional comments: some bruising present. No bowel sounds audible. distended. - Extremities Exam Additional comments: no cyanosis, edema present on lower extremities. Upper extremities are significantly bruised with +2 pitting edema bilaterally. - Neurological Exam Additional comments: patient is resting comfortably, on 15L high flow <IsadoraTin Butcher H - Last Filed: 08/22/16 15:27> Date of admission: 08/15/16 05:09 Primary care physician: Ashley Tolentino Consults: 08/16/16 18:17 Consult to Speech Therapy [CONS] Routine Comment: Evaluate, develop and implement POC Reason for Consult: risk for aspiration Call Completed: No 08/16/16 18:22 Consult to Pulmonology [CONS] Routine Consulting Provider: [facility] [place] Reason for Consult: Acute hypercapneic respiraory failure Call Completed: No 08/17/16 13:45 consult to posting machine operator [Consult to Nutrition] [CONS] Routine Comment: Consulting Provider: NUTRITION Reason for Dietary Consult: Supplemental Nutrition 08/19/16 11:36 Consult to Palliative Care [CONS] Routine Comment: Consulting Provider: Palliative Care [facility] course: Mr. Gregg is a 76 year old male - Time Spent with Patient Total time spent providing and/or coordinating discharge services: - Constitutional Vitals: Temp Pulse Resp BP Pulse Ox 98.7 F 79 12 184/101 98 08/21/16 16:15 08/21/16 15:32 08/21/16 17:00 08/21/16 17:00 08/21/16 17:00 - Attending Attestation patient resting peacefully I examined this patient and my medical decision-making was reviewed with the MERCHANDISING DIRECTOR/PA/Advanced Practice Nurse/Resident Physician. I agree with the documented findings, disposition and treatment plan as described except to the extent set forth below. Smoking cessation counseling not provided (error)
--- NOTE | 2016-08-22 09:49 | Palliative Progress Note ---
Date of Encounter: 08/22/16 Time of Encounter: 07:05 - Assessment and plan (1) Acute exacerbation of chronic obstructive airways disease Status: Acute Assessment and plan: Will continue oxygen and morphine for the patient. He will be moving over to general inpatient hospice this morning. (2) Dyspnea Status: Acute Assessment and plan: She is currently comfortable on current medications, however requiring these are great deal we will go ahead and a morphine drip so that he will be more comfortable. Be switched over to [facility] service this morning. Qualifiers: Dyspnea type: unspecified Qualified Code(s): R06.00 - Dyspnea, unspecified (3) Goals of care, counseling/discussion Status: Acute Assessment and plan: Already DNR comfort care. Patient transitioned to general inpatient hospice this morning. (4) Hypoxia Status: Acute Assessment and plan: Continue oxygen therapy. - Time Spent With Patient Total time spent is greater than 50% in coordination of care (as documented) at patient's floor/unit and/or counseling patient: - Subjective Interval history: Patient came out of the unit yesterday after being extubated. Family does not wish to have any further aggressive care. Patient has been maintained with current medications but requiring a lot of medication during the course of the night. Transition to [facility] hospice this morning. Comfort care will be initiated , and patient is requiring a continuous infusion therefore meeting general inpatient criteria. - Constitutional Vitals: Abnormal lab results WBC 11.4 K/mcL (4.3-11.1) H 08/21/16 04:00 RBC 3.88 M/mcL (4.19-5.50) L 08/21/16 04:00 Hgb 10.7 g/dL (12.9-16.9) L 08/21/16 04:00 Hct 35.8 % (37.5-50.1) L 08/21/16 04:00 MCH 27.6 pg (28.0-33.3) L 08/21/16 04:00 MCHC 29.9 g/dL (31.6-35.5) L 08/21/16 04:00 Neutrophils # 10.4 K/mcL (1.6-8.9) H 08/21/16 04:00 Lymphocytes # 0.3 K/mcL (0.6-4.6) L 08/21/16 04:00 ABG pCO2 54 mmHg (35-45) H 08/21/16 04:58 ABG pO2 124 mmHg (85-104) H 08/21/16 04:58 ABG HCO3 30.5 mEQ/L (21-27) H 08/21/16 04:58 ABG Total CO2 32.2 mEq/L (20-26) H 08/21/16 04:58 ABG O2 Saturation 99 % (95-98) H 08/21/16 04:58 ABG Base Excess 4.0 mEq/L (-2.0 to 3.0) H 08/21/16 04:58 Potassium 5.3 mEq/L (3.5-4.5) H 08/21/16 04:00 Chloride 111 mEq/L (98-109) H 08/21/16 04:00 BUN 72 mg/dL (8-26) H 08/21/16 04:00 Creatinine 1.36 mg/dL (0.72-1.25) H 08/21/16 04:00 Est GFR (Non-Af Amer) 51 (> 60) L 08/21/16 04:00 BUN/Creatinine Ratio 53 (6-26) H 08/21/16 04:00 Glucose 147 mg/dL (70-99) H 08/21/16 04:00 POC Glucose 192 (58-89) H 08/21/16 11:49 Calculated Osmolality 320 (280-300) H 08/21/16 04:00 Calcium 8.1 mg/dL (8.6-10.8) L 08/21/16 04:00 Ionized Calcium 1.14 mmol/L (1.15-1.35) L 08/19/16 13:50 Phosphorus 2.1 mg/dL (2.3-4.7) L 08/19/16 13:50 Alkaline Phosphatase 32 Units/L (38-126) L 08/18/16 04:00 Serum Total Protein 5.9 g/dL (6.0-8.3) L 08/18/16 04:00 Albumin 2.8 g/dL (3.5-5.0) L 08/18/16 04:00 Albumin/Globulin Ratio 0.9 (1.1-2.2) L 08/18/16 04:00 Urine Ketones Trace mg/dL (Negative) H 08/15/16 01:35 Urine Bilirubin Small (Negative) H 08/15/16 01:35 Urine Microscopic RBC 3-5 per hpf (0-3) H 08/15/16 01:35 Ur Squamous Epith Cells Many per lpf (None-Few) H 08/15/16 01:35 General appearance: Present: no acute distress - Head Head exam: Present: atraumatic, normal inspection - Eye Eye exam: Present: normal appearance - ENT ENT exam: Present: mucous membranes moist - Respiratory Respiratory exam: Present: decreased breath sounds - Cardiovascular Cardiovascular exam: Present: RRR - GI/Abdominal GI/Abdominal exam: Present: hypoactive bowel sounds, soft. Absent: tenderness - Extremities Exam Extremities exam: Present: normal inspection. Absent: pedal edema, tenderness - Neurological Exam Neurological exam: Present: altered - Psychiatric Psychiatric exam: Absent: agitated, anxious - Skin Skin exam: Present: dry, warm Palliative Quality Palliative Quality: Screen for Code Status: Yes, Screen for Goals of Care: Yes, Screen for Pain: Yes, If Pain Regimen Started, Initiate Bowel Regimen: Yes, Screen for Nausea/Vomitting: Yes Code Status: 08/21/16 13:54 DNR [Resuscitation Status: Active] [RES] Routine Comment: Resuscitation Status: DNR-Comfort Care - Labs CBC & Chem 7: 08/21/16 04:00 08/21/16 04:00 Labs: Laboratory Results - last 24 hr 08/21/16 11:49 POC Glucose 192 H - Impressions Impressions Chest X-Ray 08/19/16 04:00 IMPRESSION: Satisfactory position of support devices. Lungs are well-aerated. D/ / 08/19/2016 08:09:59 Yogesh Emmanuel MD / earnold Interpreting Provider: Yogesh Emmanuel MD - ABG Interpretation ABG results: ABG ABG pH 7.36 pH Units (7.32-7.45) 08/21/16 04:58 ABG pCO2 54 mmHg (35-45) H 08/21/16 04:58 ABG pO2 124 mmHg (85-104) H 08/21/16 04:58 ABG O2 Saturation 99 % (95-98) H 08/21/16 04:58 Consult Discharge Plan - Plan Additional Instructions: Management will be per palliative care team. Referrals: En Pereira DO [Primary Care Provider] -
== END 2016-08-22 09:15 | disposition hospice, inpatient (51) | DRG 870 ==
LOC: EMEROO 21:53 → 2NNU 08-15 05:09 → SUATTDRO 08-15 05:09 → 2NNU 08-15 06:23 → ICNU 08-16 19:34 → 2ANU 08-21 17:51
PROVIDERS: ADMIT Pediatrics; ATTEND Internal Medicine

== ENCOUNTER 2016-08-22 08:11 | Inpatient (IN) ==
[2016-08-22] MEDS ORDERED: Haloperidol Lactate 5 MG/ML VIAL IVP PRN (08:16)
[2016-08-22] MEDS ORDERED: *HR* LORazepam 2 MG/ML VIAL IVP PRN (08:16)
[2016-08-22] MEDS ORDERED: Albuterol 2.5 MG/3 ML NEBULIZER IH PRN (08:16)
[2016-08-22] MEDS ORDERED: Scopolamine Patch 1.5 MG PATCH.TD72 TD SCH (08:30)
[2016-08-22] MEDS: Lacri-Lube 3.5 GM TUBE BOTH EYES SCH ×4 (09:54→20:34)
--- NOTE | 2016-08-22 09:55 | Pallative History & Physical ---
Date of Encounter: 08/22/16 Time of Encounter: 07:05 Assessment and Plan (1) Dyspnea Current visit: No Status: Acute Oxygen is being continued, breathing treatments are being continued and patient is on a continuous morphine drip for comfort. Qualifiers: Dyspnea type: unspecified Qualified Code(s): R06.00 - Dyspnea, unspecified (2) Goals of care, counseling/discussion Current visit: No Status: Acute DNR comfort care. The patient is now on general inpatient hospice service for comfort. (3) Acute exacerbation of chronic obstructive airways disease Current visit: No Status: Acute Patient with respiratory failure this is his terminal diagnosis for hospice purposes. Comfort care only at this time. Internal Medicine - H&P: HPI Chief complaint: Shortness of breath Admitted From: Intrahospital Transfer Plans for Post Hospital Care: Hospice - Home History of present illness: Mr. Gregg is a 76 year old male The patient was admitted to the hospital with respiratory failure. He did poorly on the ventilator and after being extubated yesterday family decided not to pursue any further aggressive care. She has required a large amount of medication is currently requiring a constant infusion to maintain his comfort. Therefore the patient meets GIP criteria for intensity of care. Patient cannot be maintained at home or long-term at these levels. The patient is comfortable at this time and has no complaints of. Past Med Surg Social Fam HX - Past Medical History Medical history: arthritis, cancer, COPD, hypertension, other Psychiatric history: anxiety, depression - Past Surgical History Surgical History: cancer surgery - Social History Smoking Status: Former smoker Smokeless Tobacco Status: No Alcohol use: none Drug use: none Internal Medicine - H&P: Meds Citalopram Hydrobromide [Celexa] 40 mg PO DAILY 08/15/16 [History] Donepezil HCl [Aricept] 5 mg PO HS 08/15/16 [History] Fluticasone Propionate [Flovent Hfa] 2 puff IH BID 08/15/16 [History] Naproxen [Naprosyn] 500 mg PO BID 08/15/16 [History] Omeprazole 20 mg PO DAILY 08/15/16 [History] Oxycodone HCl/Acetaminophen [Percocet 5-325 mg Tablet] 1 tab PO 5XD PRN [History] Tiotropium [Spiriva] 18 mcg IH DAILY 08/15/16 [History] Budesonide/Formoterol 160/4.5 [Symbicort 160/4.5] 1 puff IH BIDR inhaler [Rx] Ipratropium/Albuterol Neb [Duoneb] 3 ml IH [id number] inhsol 08/22/16 [Rx] LORazepam [Ativan] 1 mg IVP Q2HR PRN #0 vial 08/22/16 [Rx] LORazepam [Ativan] 2 mg IVP Q4HR PRN #0 vial 08/22/16 [Rx] Lacri-Lube [Lacri-lube] 1 appl BOTH EYES Q2HR PRN #0 tube 08/22/16 [Rx] Lacri-Lube [Lacri-lube] 1 appl BOTH EYES Q4HR tube 08/22/16 [Rx] Morphine [Morphine Sulfate] 4 mg IVP Q30MIN PRN #0 syringe 08/22/16 [Rx] Naloxone [Narcan] 0.4 mg IVP Q2MIN PRN #0 inj 08/22/16 [Rx] Ondansetron ODT [Zofran ODT] 4 mg SL Q8HR PRN #0 tab.rapdis 08/22/16 [Rx] Scopolamine Patch [Transderm-Scop] 1.5 mg TD Q72H patch.td72 08/22/16 [Rx] Allergies No Known Allergies Allergy (Verified 08/14/16 22:18) ROS unobtainable: due to mental status Palliative Care-Exam - Constitutional General appearance: Present: no acute distress - Head Head Exam: Present: atraumatic, normal inspection - Eye Eye exam: Present: normal appearance - Respiratory Respiratory exam: Present: decreased breath sounds (Very shallow respirations) - Cardiovascular Cardiovascular exam: Present: RRR - GI/Abdominal Exam GI/Abdominal exam: Present: diminished bowel sounds, soft. Absent: tenderness - Extremities Exam Extremities exam: Present: normal inspection. Absent: pedal edema, tenderness - Neurological Exam Neurological exam: Present: altered - Psychiatric Psychiatric exam: Absent: agitated, anxious - Skin Skin exam: Present: dry, warm Palliative Quality Palliative Quality: Screen for Code Status: Yes, Screen for Goals of Care: Yes, Screen for Pain: Yes, If Pain Regimen Started, Initiate Bowel Regimen: Yes, Screen for Nausea/Vomitting: Yes Code Status: 08/22/16 08:16 Resuscitation Status: Active [RES] Stat Comment: Resuscitation Status: DNR-Comfort Care
[2016-08-22] MEDS: Atropine Sulfate 1% 40 DROP/2 ML BOTTLE SL PRN ×8 (10:00→20:34)
--- NOTE | 2016-08-22 10:00 | Event Note ---
Date of Encounter: 08/22/16 Time of Encounter: 09:58 Hospice registered medical assistant certification of terminal illness: Hospice benefit. Start: Hospice benefit. In: +90 days Palliative performance scale: 10-20% History: Patient has acute on chronic respiratory failure, and sepsis was initially to the hospital and placed on the ventilator he failed CPAP trials with worsening ABGs. It was compassionately extubated family request. The patient has continued to do poorly and is requiring large amounts of medication for comfort very rapid decline in overall status. Since the family has opted for comfort only believe that These findings support a life expectancy of 6 months or less. I attest that I have compose the above narrative based on my review of the patient's medical records, and or on my examination of the patient. Ryan Nichole M.D. Associate medical customer service representative. [facility]
[2016-08-22] MEDS: *HR* Morphine 2 MG/ML SYRINGE IVP PRN ×3 (12:17→18:48)
[2016-08-22] MEDS: *HR* Morphine 30 MG/ 30 ML PCA IVC PRN (19:19)
[2016-08-23] MEDS: Lacri-Lube 3.5 GM TUBE BOTH EYES SCH ×6 (00:30→19:16)
[2016-08-23] MEDS: Bisacodyl 10 MG RECTAL SUPPOSITORY RC SCH ×2 (00:30→19:21)
[2016-08-23] MEDS: Atropine Sulfate 1% 40 DROP/2 ML BOTTLE SL PRN ×9 (03:55→23:11)
[2016-08-23] MEDS: *HR* Morphine 30 MG/ 30 ML PCA IVC PRN ×2 (06:24→17:08)
--- NOTE | 2016-08-23 07:24 | Palliative Progress Note ---
Date of Encounter: 08/23/16 Time of Encounter: 07:05 - Assessment and plan (1) Dyspnea Current Visit: No Status: Acute Assessment and plan: Oxygen is being continued, breathing treatments are being continued and patient is on a continuous morphine drip for comfort. No changes today. Qualifiers: Dyspnea type: unspecified Qualified Code(s): R06.00 - Dyspnea, unspecified (2) Goals of care, counseling/discussion Current Visit: No Status: Acute Assessment and plan: DNR comfort care. The patient is now on general inpatient hospice service for comfort. The patient is still requiring a continuous morphine infusion to maintain comfort. I believe that he is final stages of his terminal illness. He is requiring care that cannot be provided by hospice at home or care home at this time. He will remain GIP. (3) Acute exacerbation of chronic obstructive airways disease Current Visit: No Status: Acute Assessment and plan: Patient with respiratory failure this is his terminal diagnosis for hospice purposes. Comfort care only at this time. - Time Spent With Patient Total time spent is greater than 50% in coordination of care (as documented) at patient's floor/unit and/or counseling patient: - Subjective Interval history: Sedated on morphine drip. Appears comfortable. - Constitutional General appearance: Present: no acute distress - Head Head exam: Present: atraumatic, normal inspection - ENT ENT exam: Present: mucous membranes moist (Past Ventimask in place this seems to be tolerated well.) - Respiratory Respiratory exam: Present: decreased breath sounds (Breaths are slow. And shallow) - Cardiovascular Cardiovascular exam: Present: RRR - GI/Abdominal GI/Abdominal exam: Present: hypoactive bowel sounds, soft. Absent: tenderness - Extremities Exam Extremities exam: Present: normal inspection. Absent: pedal edema, tenderness - Neurological Exam Neurological exam: Present: altered - Psychiatric Psychiatric exam: Absent: agitated, anxious - Skin Skin exam: Present: dry, warm Palliative Quality Palliative Quality: Screen for Code Status: Yes, Screen for Goals of Care: Yes, Screen for Pain: Yes, If Pain Regimen Started, Initiate Bowel Regimen: Yes, Screen for Nausea/Vomitting: Yes Code Status: 08/22/16 08:16 Resuscitation Status: Active [RES] Stat Comment: Resuscitation Status: DNR-Comfort Care
[2016-08-23] MEDS: *HR* Morphine 2 MG/ML SYRINGE IVP PRN ×2 (19:18→23:11)
[2016-08-24] MEDS: Lacri-Lube 3.5 GM TUBE BOTH EYES SCH ×3 (00:31→09:06)
[2016-08-24] MEDS: Atropine Sulfate 1% 40 DROP/2 ML BOTTLE SL PRN ×7 (00:32→09:06)
[2016-08-24] MEDS: *HR* Morphine 30 MG/ 30 ML PCA IVC PRN ×3 (03:23→20:50)
[2016-08-24] MEDS: *HR* Morphine 2 MG/ML SYRINGE IVP PRN ×3 (07:35→23:00)
[2016-08-24] MEDS ORDERED: Atropine Sulfate 1% 40 DROP/2 ML BOTTLE SL PRN (09:26)
[2016-08-24] MEDS ORDERED: Acetaminophen 650 MG RECTAL SUPP RC PRN (09:27)
--- NOTE | 2016-08-24 09:29 | Palliative - Consult Note ---
Date of Encounter: 08/24/16 Time of Encounter: 09:30 - Assessment and Plan (1) Dyspnea Current Visit: No Status: Acute Assessment and plan: Patient respiratory rate 28-30. Has utilized Breakthrough morphine x3 last 18 hours. Will increase drip to 4mg/hr and monitor. Qualifiers: Dyspnea type: unspecified Qualified Code(s): R06.00 - Dyspnea, unspecified (2) Anxiety Current Visit: Yes Status: Acute Assessment and plan: IV Lorazepam as needed. Has not utilized x24 hours. Monitor (3) Acute and chronic respiratory failure Current Visit: No Status: Acute Qualifiers: Respiratory failure complication: unspecified whether with hypoxia or hypercapnia Qualified Code(s): J96.20 - Acute and chronic respiratory failure , unspecified whether with hypoxia or hypercapnia (4) Acute exacerbation of chronic obstructive airways disease Current Visit: No Status: Acute Palliative-CN HPI - Data of Consult Consult date: 08/24/16 Requesting Physician: Ryan Nichole MD Primary Care Provider: PCP NO - Consult Narrative History of present illness: Mr. Gregg is a 76 year old male with a history of end stage lung disease who was admitted to inpatient hospice over the weekend. Patient was previously admitted for acute on chronic respiratory failure and had history of end stage COPD, noncompliant with avoiding tobacco abuse and oxygen. He was intubated in the ICU for approximately a week. On 08/21/16, family had meeting with Palliative care and decided to proceed with extubation and transition to DNRCC. Initially was to extubate to bipap, however, family refused this shortly after he was extubated. He has required frequent doses of IV Morphine for his dyspnea, and was placed on a continuous drip over the weekend. At my visit, he still appears to be in some mild resp distress - respirations are 30/min and deep. He is febrile and has cool washcloths on face and axilla. and sister are at bedside. He does still remain on ventimask. CC: Ryan Nichole MD Past Med Surg Social Fam HX - Past Medical History Medical history: arthritis, cancer, COPD, hypertension, other Psychiatric history: anxiety, depression - Past Surgical History Surgical History: cancer surgery - Social History Smoking Status: Former smoker Smokeless Tobacco Status: No Alcohol use: none Drug use: none Medications and Allergies Citalopram Hydrobromide [Celexa] 40 mg PO DAILY 08/15/16 [History] Donepezil HCl [Aricept] 5 mg PO HS 08/15/16 [History] Fluticasone Propionate [Flovent Hfa] 2 puff IH BID 08/15/16 [History] Naproxen [Naprosyn] 500 mg PO BID 08/15/16 [History] Omeprazole 20 mg PO DAILY 08/15/16 [History] Oxycodone HCl/Acetaminophen [Percocet 5-325 mg Tablet] 1 tab PO 5XD PRN [History] Tiotropium [Spiriva] 18 mcg IH DAILY 08/15/16 [History] Budesonide/Formoterol 160/4.5 [Symbicort 160/4.5] 1 puff IH BIDR inhaler [Rx] Ipratropium/Albuterol Neb [Duoneb] 3 ml IH [id number] inhsol 08/22/16 [Rx] LORazepam [Ativan] 1 mg IVP Q2HR PRN #0 vial 08/22/16 [Rx] LORazepam [Ativan] 2 mg IVP Q4HR PRN #0 vial 08/22/16 [Rx] Lacri-Lube [Lacri-lube] 1 appl BOTH EYES Q2HR PRN #0 tube 08/22/16 [Rx] Lacri-Lube [Lacri-lube] 1 appl BOTH EYES Q4HR tube 08/22/16 [Rx] Morphine [Morphine Sulfate] 4 mg IVP Q30MIN PRN #0 syringe 08/22/16 [Rx] Naloxone [Narcan] 0.4 mg IVP Q2MIN PRN #0 inj 08/22/16 [Rx] Ondansetron ODT [Zofran ODT] 4 mg SL Q8HR PRN #0 tab.rapdis 08/22/16 [Rx] Scopolamine Patch [Transderm-Scop] 1.5 mg TD Q72H patch.td72 08/22/16 [Rx] Allergies No Known Allergies Allergy (Verified 08/14/16 22:18) ROS unobtainable: due to mental status Palliative Care-Exam - Constitutional Vitals: Temp Pulse Resp BP Pulse Ox 99.9 F H 108 18 172/76 94 L 08/24/16 04:00 08/24/16 04:00 08/24/16 04:00 08/24/16 04:00 08/24/16 04:00 General appearance: Present: mild distress - Head Head Exam: Present: normal inspection, normocephalic - ENT ENT exam: Present: mucous membranes moist - Respiratory Additional comments: Rhonchi throughout all lung alfonso anteriorally. Breath sounds diminished as well rt anterior chest. - Cardiovascular Cardiovascular exam: Present: +S1, +S2, tachycardia - GI/Abdominal Exam GI/Abdominal exam: Present: normal bowel sounds, soft - Catheter Type: Urethral (Navarrete) Additional comments: Urine clear yellow - Extremities Exam Extremities exam: Present: normal capillary refill, normal inspection - Neurological Exam Additional comments: Patient minimally responsive - moves arms occasionally during assessment. Follows no commands. Does not open eyes with tactile or verbal stimulation. - Skin Skin exam: Present: dry, pallor, warm Consult Discharge Plan - Plan Referrals: NO,PCP [Primary Care Provider] - Palliative Quality Palliative Quality: Screen for Code Status: Yes, Screen for Goals of Care: Yes, Screen for Pain: Yes, If Pain Regimen Started, Initiate Bowel Regimen: Yes, Screen for Nausea/Vomitting: Yes Code Status: 08/22/16 08:16 Resuscitation Status: Active [RES] Stat Comment: Resuscitation Status: DNR-Comfort Care
[2016-08-24] MEDS ORDERED: 0.9 % Sodium Chloride 1,000 ML ONE (09:40)
[2016-08-24 16:27] VITALS: BP 144/67
[2016-08-25] MEDS ORDERED: Scopolamine Patch 1.5 MG PATCH.TD72 TD SCH (08:30)
--- NOTE | 2016-08-25 08:51 | Death Note ---
Discharge Sum: Summary - Date and Time Date of admission: 08/22/16 09:16 Date of : 08/25/16 Time of : 00:52 - Summary Details: Patient was general inpatient hospice after compassionate extubation from the ventilator last August 21. He had been in the hospital with acute on chronic respiratory failure related to end stage lung disease. Patient had been minimally responsive since that time, and required continuous IV Morphine to assist with his dyspnea. He at 0052 with family at the bedside. - Additional Data Confirmation of as documented by pronouncing clinician: no pulse, no respirations, no heart sounds Family: at bedside Attending physician: Ryan Nichole MD Organ bank notified?: Yes Hospice patient?: Yes Discharge Sum: Diag - PCOD Probable Cause of : Respiratory arrest Discharge Sum: Prov - Provider Primary care physician: PCP NO Admitting clinician: Ryan Nichole Consults: 08/22/16 08:16 Consult to Palliative Care [CONS] Routine Comment: Consulting Provider: Palliative Care Lety Pronouncing clinician: Ryan Nichole
== END 2016-08-25 01:40 | disposition expired | DRG 871 ==
LOC: 2ANU 09:16
PROVIDERS: ADMIT Family Medicine Hospice and Palliative Medicine; ATTEND Family Medicine Hospice and Palliative Medicine